=== PATIENT | female | born 1985 | race Caucasian/White ===

== ENCOUNTER 2017-06-02 00:44 | Emergency (ER) | payer MEDICAID, SELFPAY ==
[2017-06-02 00:46] VITALS: BP 139/83; PULSE 69; RESP 20; TEMP 36.7; O2SAT 100; BMI 41.4
[2017-06-02 01:02] LABS: Mucous, Urine 0 SEEN /hpf (<or=2+)
[2017-06-02 01:03] LABS: Color, Urine Yellow (Yellow); Glucose, Dipstick Normal (Normal); Ketone-Dipstick Negative (Negative); Leukocyte Esterase-Dipstick 500 /ul (Negative); Nitrite-Dipstick Negative (Negative); Occult Blood-Urine 150 /ul (Negative); Protein-Dipstick 30 mg/dl (Negative); Specific Gravity, Urine 1.015 (1.002-1.030); Urine Bilirubin Dipstick Negative (Negative); Urine Clarity Cloudy (Clear); Urine Urobilinogen Normal (Normal)
[2017-06-02 01:06] LABS: Internal QC Validated? YES +Cl - CLEAR BKGD; Pregnancy, Urine Negative Negative
[2017-06-02 01:08] LABS: White Blood Cells 25-50 SEEN /hpf (0-5)
[2017-06-02 01:09] LABS: Bacteria 2+ /hpf (None Seen); Red Blood Cells-Urine 5-10 SEEN /hpf (0-5); Squamous Epithelial Cells - UA 0-5 SEEN /hpf (5-10)
--- NOTE | 2017-06-02 01:23 | ED.DCSUM_ITS ---
- ER Visit Summary Date of Service: 06/02/17 Chief Complaint: Burning with urination History of Present Illness: The patient is a 31 F with UTI symptoms that started several weeks ago. She completed a course of doxycycline and Cipro. She has suprapubic pressure, dysuria, frequency. She was treated as well for bacterial vaginosis with Flagyl. Patient has no fever or systemic symptoms. Physical Examination: Afebrile and vitals unremarkable. Nontoxic. Back nontender. Abdomen normal. Test Results: test negative. Urinalysis shows elevated leukocyte esterase, elevated white cells, red cells, and bacteria. Cultures pending. Emergency Department Course and Treatment: I am not sure why the patient had a rebound infection. Possibly her previous infection was resistant to her antibiotics. I sent a culture. We will treat the patient with Keflex and Pyridium. Follow-up with her doctor. Treatment Plan: As above Disposition: Discharge Impression: UTI, cystitis This note was generated with [employer] dictation software. It may contain incorrect words, spelling, and punctuation that were not noted in review of the chart prior to signing ED Disposition - Plan for ED Patient: Chief Complaint: Complaint Referrals: Helen Bryant DO [Primary Care Provider] -
--- NOTE | 2017-06-02 01:23 | ED.DEP ---
ED Disposition - Plan for ED Patient: Chief Complaint: Complaint Instructions: ED UTI Cystitis Female Prescriptions: Cephalexin [Keflex] 500 mg PO Q6 #40 cap Phenazopyridine HCl [Pyridium] 200 mg PO TID #5 tab Referrals: Helen Bryant DO [Primary Care Provider] -
[2017-06-02] MEDS: Cephalexin 250 MG Capsule 500 MG PO (01:25)
[2017-06-02] MEDS: Phenazopyridine 95 MG Tablet 190 MG PO (01:28)
[2017-06-02 01:31] VITALS: BP 139/83; PULSE 69; RESP 20
== END 2017-06-02 01:31 | disposition home or self-care (01) ==
PROVIDERS: Emergency Provider Emergency Medicine
DX: N39.0 Urinary tract infection, site not specified (principal); Z87.440 Personal history of urinary (tract) infections; Z86.19 Personal history of other infectious and parasitic diseases; Z72.89 Other problems related to lifestyle; Z87.891 Personal history of nicotine dependence
CPT/HCPCS: 81001; 81025; 87077; 87086; 87088; 87186; 99283

== ENCOUNTER → 2017-06-29 19:27 | Outpatient (CLI) | payer MEDICAID, SELFPAY ==
[2017-06-29 21:41] LABS: Chlamydia Trachomatis by PCR Negative (Negative); Neisserai gonorrhoeae by PCR Negative (Negative); Probe Check PASS; Sample Adequacy Control PASS; Specimen Processing Control PASS
== END ==
PROVIDERS: Visit Provider Obstetrics & Gynecology
DX: Z11.3 Encounter for screening for infections with a predominantly sexual mode of transmission (principal)
CPT/HCPCS: 87491; 87591

== ENCOUNTER → 2017-07-20 11:47 | Outpatient (CLI) | payer MEDICAID, SELFPAY ==
[2017-07-20 13:49] LABS: Color, Urine Yellow (Yellow); Glucose, Dipstick Normal (Normal); Ketone-Dipstick Negative (Negative); Leukocyte Esterase-Dipstick 25 /ul (Negative); Nitrite-Dipstick Negative (Negative); Occult Blood-Urine 10 /ul (Negative); Protein-Dipstick 15 mg/dl (Negative); Urine Bilirubin Dipstick Negative (Negative); Urine Clarity Clear (Clear); Urine Urobilinogen Normal (Normal); Urine pH 6.5 (5.0 - 8.0)
[2017-07-20 14:12] LABS: Thyroid Stim Hormone (TSH) 5.16 uIU/mL (0.358-3.74)
[2017-07-20 14:13] LABS: Amphetamine Urine VISTA NEGATIVE (<1000 ng/mL); Barbiturate Urine VISTA NEGATIVE (< 200 ng/mL); Benzodiazepine Urine VISTA NEGATIVE (< 200 ng/mL); Cocaine Urine VISTA NEGATIVE (< 300 ng/mL); Ecstacy Urine VISTA NEGATIVE (< 500 ng/mL); Methadone Urine VISTA NEGATIVE (< 300 ng/mL); PCP Urine VISTA NEGATIVE (< 25 ng/mL); THC Urine VISTA NEGATIVE (< 50 ng/mL); Vista UDS pH Range 6
[2017-07-20 14:55] LABS: Absolute Lymphocyte Count 2.82 X10^3/ul (0.83-4.51); Absolute Neutrophil Count 4.1 X10^3/uL (2.0-7.7); Basophil# 0.02 X10^3/uL; Basophil% 0.3 % (0-1); Eosinophil# 0.12 X10^3/uL; Eosinophils% 1.6 % (0-5); Hematocrit 39.9 % (37-47); Hemoglobin 13.1 g/dl (12.0-15.0); Lymphocyte # 2.82 X10^3/ul (4.0); Mean Corp Hgb Conc 32.8 g/gl (32-36); Mean Corpuscular Volume 91.5 fL (81-99); Mean Platelet Vol. 10.3 fl (6.2-12.0); Monocyte# 0.56 X10^3/uL; Monocyte% 7.3 % (0-10); Neutrophil % 53.7 % (47-70); Platelet Count 271 K/mm3 (150-450); RBC Distribution Width CV 13.2 % (11.6-14.6); RBC Distribution Width SD 43.4 fl (35.1-43.9); Red Blood Count 4.36 M/mm3 (4.2-5.4); White Blood Count 7.6 K/mm3 (4.4-11.0)
[2017-07-20 14:56] LABS: POSITIVE COUNT NO; POSITIVE DIFFERENTIAL NO; POSITIVE MORPHOLOGY NO
[2017-07-20 15:58] LABS: COTININE Drug Screen Negative (<200 ng/mL)
[2017-07-20 16:25] LABS: Free T3 2.6 pg/mL (2.18-3.98); T4 Free Direct 0.81 ng/dL (0.76-1.46)
[2017-07-21 03:15] LABS: Prenatal RPR NONREACTIVE (NONREACTIVE)
[2017-07-21 09:16] LABS: HEPATITIS B SURFACE AG Negative (Negative); Hep C Antibodies <0.1 s/co ratio (0.0-0.9)
[2017-07-21 11:15] LABS: HIV - WCH Non-Reactive (Nonreactive); Rubella IgG 119.4 IU/mL
== END ==
PROVIDERS: Visit Provider Obstetrics & Gynecology
DX: O99.281 Endocrine, nutritional and metabolic diseases complicating pregnancy, first trimester (principal); R94.6 Abnormal results of thyroid function studies; Z3A.00 Weeks of gestation of pregnancy not specified
CPT/HCPCS: 36415; 80307; 81002; 84439; 84443; 84481; 85025; 86703; 86762; 86803; 87340

== ENCOUNTER 2017-08-03 21:59 | Emergency (ER) | payer MEDICAID, SELFPAY ==
[2017-08-03 22:01] VITALS: BP 138/86; PULSE 98; RESP 16; TEMP 37.2; O2SAT 100; BMI 40.7
[2017-08-03] MEDS: Clindamycin HCl 150 MG Capsule 300 MG PO (23:38)
--- NOTE | 2017-08-03 23:39 | ED.DCSUM_ITS ---
- ER Visit Summary Date of Service: 08/03/17 Chief Complaint: Sore on bottom History of Present Illness: The patient is a 31 F who is 11 weeks . She states that for the past week she has had discomfort on the right buttock near the midline. Patient states is progressively gotten worse in this evening she noted some bleeding. No fevers. No history of prior abscesses. Physical Examination: Afebrile vital signs are stable Gen: Well-nourished well-developed Head: Normocephalic atraumatic Eyes: Perrl EOMI ENT: TMs clear no rhinorrhea moist mucous membranes Neck: Supple no lymphadenopathy no JVD nontender CVS: Regular rate rhythm no murmurs normal S1-S2 Respiratory: No distress clear to auscultation bilaterally chest nontender Abdomen: Soft nontender nondistended normal bowel sounds no masses Back: Nontender Extremity: Nontender no edema Skin: There is an obvious pointing abscess with some fluctuance in the right buttock near the midline. There is some surrounding erythema. Neuro: alert orientated ?3 CN II-XII intact normal strength sensation reflexes gait cerebellar Psych: Normal affect normal mood Emergency Department Course and Treatment: Patient provided informed consent for the incision and drainage of the abscess. 1% lidocaine instilled into the skin of the pointing abscess. A cross incision was made with large amount of pus removed. The wound was probed for loculations and irrigated. It was packed with half-inch iodoform gauze. Patient will be placed on clindamycin because of the surrounding erythema. She will follow-up in 3 days for wound check and packing removal. Impression: 1. Right buttock abscess 2. Incision and drainage by physician This note was generated with [employer] dictation software. It may contain incorrect words, spelling, and punctuation that were not noted in review of the chart prior to signing ED Disposition - Plan for ED Patient: Disposition: Home or Assisted Living Chief Complaint: Wound Check Instructions: ED Abscess IandD Prescriptions: Clindamycin HCl [Cleocin] 300 mg PO Q6H #40 cap Referrals: Helen Bryant DO [Primary Care Provider] - (in 3 days for packing removal)
== END 2017-08-03 23:45 | disposition home or self-care (01) ==
PROVIDERS: Emergency Provider Emergency Medicine
DX: O99.711 Diseases of the skin and subcutaneous tissue complicating pregnancy, first trimester (principal); L02.31 Cutaneous abscess of buttock; Z79.899 Other long term (current) drug therapy; Z3A.11 11 weeks gestation of pregnancy
CPT/HCPCS: 10060; 99284

== ENCOUNTER → 2017-11-27 13:16 | Outpatient (CLI) | payer MEDICAID, SELFPAY ==
[2017-11-27 13:56] LABS: Glucose Challenge Gest 1H 50g 224 mg/dL (70-140)
[2017-11-27 14:09] LABS: Hematocrit 35.6 % (37-47); Hemoglobin 11.7 g/dl (12.0-15.0); Mean Corp Hgb Conc 32.9 g/gl (32-36); Mean Corpuscular Hgb 29.8 pg (27.0-32.0); Mean Corpuscular Volume 90.8 fL (81-99); Mean Platelet Vol. 10.1 fl (6.2-12.0); Platelet Count 244 K/mm3 (150-450); RBC Distribution Width CV 13.2 % (11.6-14.6); RBC Distribution Width SD 43.1 fl (35.1-43.9); Red Blood Count 3.92 M/mm3 (4.2-5.4); White Blood Count 7.2 K/mm3 (4.4-11.0)
[2017-11-27 14:11] LABS: Scan Indicated on CBC? Y/N NO
== END ==
PROVIDERS: Visit Provider Obstetrics & Gynecology
DX: Z34.82 Encounter for supervision of other normal pregnancy, second trimester (principal)
CPT/HCPCS: 82950; 85027

== ENCOUNTER 2017-12-18 09:30 | Outpatient (RCR) | payer MEDICAID, SELFPAY | END 2017-12-22 23:59 | LOC: DC 09:30 | PROVIDERS: Visit Provider Obstetrics & Gynecology | DX: O24.419 Gestational diabetes mellitus in pregnancy, unspecified control (principal); Z71.3 Dietary counseling and surveillance | CPT/HCPCS: 97802; G0108 ==

== ENCOUNTER 2018-01-09 15:00 | Outpatient (RCR) | payer MEDICAID, SELFPAY | END 2018-01-21 23:59 | LOC: DC 15:00 | PROVIDERS: Visit Provider Obstetrics & Gynecology | DX: O24.419 Gestational diabetes mellitus in pregnancy, unspecified control (principal); Z71.3 Dietary counseling and surveillance ==

== ENCOUNTER → 2018-01-22 14:13 | Outpatient (CLI) | payer MEDICAID, SELFPAY ==
[2018-01-22 17:58] LABS: Group B Strep DNA By PCR Negative (Negative); Internal Control PASS; Probe Check PASS; Specimen Processing Control PASS
== END ==
PROVIDERS: Visit Provider Obstetrics & Gynecology
DX: Z36.85 Encounter for antenatal screening for Streptococcus B (principal)
CPT/HCPCS: 87081; 87653

== ENCOUNTER 2018-02-14 04:50 | Inpatient (IN) | payer MEDICAID, SELFPAY ==
[2018-02-14] VITALS (21 sets, daily range): BP systolic 109–160; BP diastolic 58–82; PULSE 65–94; RESP 16–24; TEMP 36.4–37.3; O2SAT 97–100; BMI 42.5
--- NOTE | 2018-02-14 | FALS_PTH ---
PATIENT: CAROLINA REN LOC: [facility] U#:[id number] AGE/SX: 32/F ROOM: WP003 RE02/14/[address]: Dr. Armond Pineda MD : 1985 BED: 1 DIS: 02/16/2018 SPEC #: [id number] RECD: 02/14/18 06:54 STATUS: MARTHA MICHELE #: [id number] MELBA: 02/14/18 00:[address]: Armond Pineda DEPT: SURGICAL PATHOLOGY RECD BY: Stan Marcano Tissues: Fallopian tube Procedures: Surgery Specimen Level II HEADER OPERATION: Bilateral tubal occlusion with Filshie clips PRE-OP DIAGNOSIS: Desires sterilization TISSUE SUBMITTED: Right side tube MICROSCOPIC DIAGNOSIS Right side tube: Consistent with paratubal cyst. SUZIE:vianey 02/15/18 MICROSCOPIC DESCRIPTION Slides are reviewed. GROSS DESCRIPTION Received in fixative is one container labeled with the patient's name and designated right side tube. The specimen consists of a dudley-pink cyst measuring 4 x 4 x 2 cm and weighing 18 gm. The cyst surface is smooth. The cyst is filled with clear fluid. The inner cyst wall is also smooth without any papillation. Equipment Driver sections are submitted in two cassettes. / SJ:vianey 02/14/18 TC:5 CPT: 22547
[2018-02-14] MEDS: Lactated Ringers 1,000 ML 999 ML IV (05:35)
[2018-02-14 05:51] LABS: Bedside Glucose 112 mg/dL (70-110)
[2018-02-14 05:54] LABS: Hematocrit 36.6 % (37-47); Hemoglobin 11.9 g/dl (12.0-15.0); Mean Corp Hgb Conc 32.5 g/gl (32-36); Mean Corpuscular Hgb 28.1 pg (27.0-32.0); Mean Corpuscular Volume 86.5 fL (81-99); Mean Platelet Vol. 9.9 fl (6.2-12.0); Platelet Count 256 K/mm3 (150-450); RBC Distribution Width CV 13.4 % (11.6-14.6); RBC Distribution Width SD 41.1 fl (35.1-43.9); Red Blood Count 4.23 M/mm3 (4.2-5.4); White Blood Count 7.7 K/mm3 (4.4-11.0)
[2018-02-14 05:57] LABS: Prothrombin Time (Protime)PT. 13.1 SECONDS (11.7-14.9)
[2018-02-14 05:58] LABS: Partial Thromboplast Time 27.3 Seconds (24.1-36.2)
[2018-02-14 06:02] LABS: Scan Indicated on CBC? Y/N NO
[2018-02-14] MEDS: Lactated Ringers 1,000 ML 150 ML IV (06:34)
[2018-02-14] MEDS: Sodium Citrate/Citric Acid 30 ML UDC PO (07:12)
[2018-02-14] MEDS: Oxytocin 30 units/NS 500 ml 30 UNITS/500 ML IV.SOLN 167 UNITS IV (07:49)
[2018-02-14] MEDS: Ketorolac 30 MG/ML Syringe IV ×3 (08:06→19:48)
--- NOTE | 2018-02-14 08:50 | PCM.OP.BLANK ---
Operative Report Date of Procedure: 02/14/18 Surgeon: Armond Pineda MD, FACOG Boat Deckhand: WILLIAM Schultz Anesthesia: Marily Velez CRNA Anesthesia: Spinal with Duramorph Pre-op Diagnosis: - -Prior Section, Desires Permanent Sterilization Post-Op Diagnosis: - -Prior Section, Desires Permanent Sterilization Procedure: Repeat Low Transverse Cervical Caesarean Section And Bilateral Tubal Occlusion with Filshie Clips Findings: Viable male with Apgars of 9/9 in occiput anterior presentation with clear amniotic fluid and normal three-vessel placenta. Indication: This is a 32-year-old who presents for her second at 39+ weeks gestation. care has otherwise been uneventful except for gestational diabetes controlled with low-dose glyburide and a placental bump noted on very early ultrasound which subsequently resolved. The patient has been counseled regarding the risk and indications of this procedure including the possibility of bleeding infection and injury to surrounding structures such as bowel bladder. All questions were answered. Procedure: Patient was taken to the operating room where after spinal anesthesia was placed, the patient was prepped and draped in usual sterile fashion and a Grullon catheter was placed. The abdomen was entered through the patient's prior Pfannenstiel incision and peritoneum was entered bluntly. After developing a bladder flap on the lower uterine segment a low transverse incision was made on the uterus and head was easily delivered onto the operative field the nose mouth and oropharynx were bulb suctioned. Subsequently a viable male was born with Apgars of 9/9. The infant was noted to cry move all extremities vigorously on the operative field. The umbilical cord was doubly clamped and ligated and infant handed to the nursery personnel who were present for the delivery. Placenta was delivered and noted to be 3 vessels and normal. Uterus was exteriorized and remaining placental tissue was removed. The uterus was then closed in 2 layers first with running locked 0 Vicryl suture followed by a second imbricating layer with 0 Vicryl suture. 0 Vicryl suture was then used in a horizontal mattress interrupted fashion to affect final hemostasis of the uterine incision line. Normal fallopian tubes and ovaries were visualized and Filshie clips were placed approximately 1-2 cm from the uterine fundus on each tube. The uterus was returned to the pelvis. Hemostasis was noted and rectus abdominis muscles were reapproximated in the midline with interrupted Number 0 Vicryl suture in a horizontal mattress fashion. Fascia was closed with running Number 1 PDS Strata fix suture. Subcutaneous tissue was irrigated with copious amounts of saline solution and then closed with running 3-0 Vicryl suture. Skin was closed with 4-0 monocryl suture in a running subcuticular fashion. Steri strips, telfa, and tape were placed across the incision. The patient tolerated the procedure well and was taken to the recovery room in satisfactory condition. Sponge, needle, and instrument counts were all reportedly correct. EBL was less than 500 cc. Ancef 3 gms IV was given prior to the procedure. Spicemen to Pathology: None Complications: None
--- NOTE | 2018-02-14 08:54 | OP.PCM_ITS ---
Operative Report Date of Procedure: 02/14/18 Surgeon: Armond Pineda MD, FACOG Co Founder & Ceo: WILLIAM Schultz Anesthesia: Marily Velez CRNA Anesthesia: Spinal with Duramorph Pre-op Diagnosis: - -Prior Section, Desires Permanent Sterilization Post-Op Diagnosis: - -Prior Section, Desires Permanent Sterilization Procedure: Repeat Low Transverse Cervical Caesarean Section And Bilateral Tubal Occlusion with Filshie Clips Findings: Viable male with Apgars of 9/9 in occiput anterior presentation with clear amniotic fluid and normal three-vessel placenta. Indication: This is a 32-year-old who presents for her second at 39+ weeks gestation. care has otherwise been uneventful except for gestat ional diabetes controlled with low-dose glyburide and a placental bump noted on very early ultrasound which subsequently resolved. The patient has been counseled regarding the risk and indications of this procedure including the possibility of bleeding infection and injury to surrounding structures such as bowel bladder. All questions were answered. Procedure: Patient was taken to the operating room where after spinal anesthesia was placed, the patient was prepped and draped in usual sterile fashion and a Grullon catheter was placed. The abdomen was entered through the patient's prior Pfannenstiel incision and peritoneum was entered bluntly. After developing a bladder flap on the lower uterine segment a low transverse incision was made on the uterus and head was easily delivered onto the operative field the nose mouth and oropharynx were bulb suctioned. Subsequently a viable male infant was born with Apgars of 9/9. The infant was noted to cry move all extremities vigorously on the operative field. The umbilical cord was doubly clamped and ligated and handed to the nursery personnel who were present for the delivery. Placenta was delivered and noted to be 3 vessels and normal. Uterus was exteriorized and remaining placental tissue was removed. The uterus was then closed in 2 layers first with running locked 0 Vicryl suture followed by a second imbricating layer with 0 Vicryl suture. 0 Vicryl suture was then used in a horizontal mattress interrupted fashion to affect final hemostasis of the uterine incision line. Normal fallopian tubes and ovaries were visualized and Filshie clips were placed approximately 1-2 cm from the uterine fundus on each tube. The uterus was returned to the pelvis. Hemostasis was noted and rectus abdominis muscles were reapproximated in the midline with interrupted Number 0 Vicryl suture in a horizontal mattress fashion. Fascia was closed with running Number 1 PDS Strata fix suture. Subcutaneous tissue was irrigated with copious amounts of saline solution and then closed with running 3-0 Vicryl suture. Skin was closed with 4-0 monocryl suture in a running subcuticular fashion. Steri strips, telfa, and tape were placed across the incision. The patient tolerated the procedure well and was taken to the recovery room in satisfactory condition. Sponge, needle, and instrument counts were all reportedly correct. EBL was less than 500 cc. Ancef 3 gms IV was given prior to the procedure. Spicemen to Pathology: None Complications: None
--- NOTE | 2018-02-14 08:56 | DCINST_ITS ---
Discharge Diet: No Restrictions Discharge Activity: May not drive while taking narcotic pain medications., May Shower, May Take a Tub Bath May resume sexual activity in: 4-6 weeks Lifting Restrictions: 20 pounds Additional Activity Instructions:: Nothing in the vagina for 4-6 weeks. You may return to work/school in 6 weeks. Call your doctor if your incision/area has: Continuous Slow Oozing, Sudden Increased Bleeding, Increased Pain/ Swelling, Increased Redness, Foul Smelling Discharge Call your doctor if you observe: Fever of 101 or Higher, Inability to urinate, Inability to have a bowel movement, Using more than one pad per hour Additional Instructions: If you experience any of the following, contact your healthcare provider. * Bleeding that soaks a pad every hour for 2 hours * Unrelieved incision or abdominal pain * Swelling, redness, discharge or bleeding from your incision or episiotomy site * Your incision begins to separate * Problems urinating (including inability to urinate or burning while urinating). * Visual changes * Severe headache * Flu-like symptoms * Pain or redness in one of both of your breasts * Pain, warmth, tenderness or swelling in your legs, especially the calf area * Frequent nausea and vomiting * Symptoms of depression or anxiety If you experience any of the following, call 911 or go to the nearest Emergency Room. * Chest pain * Problems breathing * Seizure activity * Partial or complete paralysis of a body part, slurred speech, weakness or drooping of the face, or a sudden inability to walk or hold your balance Allergies/Adverse Reactions: Allergies No Known Allergies Allergy (Verified 02/14/18 05:33) Medications to take at Discharge Levothyroxine [Synthroid] 25 mcg PO DAILY 06/02/17 Vit No.130/Iron/FA [ Vitamins] 1 each PO DAILY 08/03/17 Docusate Sodium [Colace] 100 mg PO BID PRN PRN #60 cap 02/14/18 Glyburide 1.25 mg PO 02/14/18 Oxycodone [Oxyir] 5 mg PO Q6H PRN PRN 7 Days #20 tab 02/14/18 Follow-Up: Call to make an appointment with your doctor for an incision check in 1-2 weeks. You will also need a 6 week post- follow up appointment. Test results from this visit will be discussed in further detail at your follow- up appointment, if applicable. Please Follow Up With: Armond Pineda MD - [phone] When: Call to make an appointment for an incision check in 2 weeks.
[2018-02-14] MEDS: Lactated Ringers 1,000 ML 100 ML IV ×2 (09:47→17:51)
[2018-02-14 10:46] LABS: Bedside Glucose 100 mg/dL (70-110)
[2018-02-14] MEDS: Nalbuphine 10 MG/ML Ampul 5 MG IV ×2 (10:55→22:46)
[2018-02-14 11:43] LABS: Pathology Specimen OB SEE PATHOLOGY REPORT
[2018-02-14] MEDS: Cefazolin 1 GM/50 ML BAG IV ×2 (15:30→22:36)
[2018-02-14] MEDS: DiphenhydrAMINE 25 MG Capsule PO (17:51)
--- NOTE | 2018-02-14 21:58 | NURSING ---
Moving about in room, sitting up on chair
[2018-02-15] MEDS: Ketorolac 30 MG/ML Syringe IV ×4 (01:35→19:56)
[2018-02-15 01:45] VITALS: PULSE 100; RESP 18; O2SAT 100
[2018-02-15] MEDS: Nalbuphine 10 MG/ML Ampul 5 MG IV (02:55)
[2018-02-15 02:59] VITALS: PULSE 99; RESP 18; TEMP 37; O2SAT 100
[2018-02-15 05:00] VITALS: PULSE 98; RESP 16; O2SAT 98
[2018-02-15 05:06] LABS: Bedside Glucose 82 mg/dL (70-110)
[2018-02-15 05:19] LABS: Hematocrit 30.7 % (37-47); Hemoglobin 9.7 g/dl (12.0-15.0); Mean Corp Hgb Conc 31.6 g/gl (32-36); Mean Corpuscular Hgb 27.9 pg (27.0-32.0); Mean Corpuscular Volume 88.2 fL (81-99); Mean Platelet Vol. 9.8 fl (6.2-12.0); Platelet Count 208 K/mm3 (150-450); RBC Distribution Width CV 13.4 % (11.6-14.6); Red Blood Count 3.48 M/mm3 (4.2-5.4); White Blood Count 7.9 K/mm3 (4.4-11.0)
[2018-02-15 05:30] LABS: Scan Indicated on CBC? Y/N NO
[2018-02-15] MEDS: Levothyroxine 25 MCG TABLET PO (06:05)
[2018-02-15 07:00] VITALS: BP 133/76; PULSE 86; RESP 16; TEMP 36.7; O2SAT 100
[2018-02-15] MEDS: 0.9% Saline Lock 10 ML Syringe IV ×4 (07:41→19:58)
[2018-02-15] MEDS: Senna/Docusate Sodium 1 Tablet PO (07:42)
[2018-02-15] MEDS: oxyCODONE 5 MG Tablet PO ×3 (07:45→21:21)
--- NOTE | 2018-02-15 09:16 | PCM.PN.OB ---
Subjective: Patient doing well. Itching possibly from Duramorph and spinal or antibiotic used after surgery. Relieved with Benadryl. Positive flatus. Pain well controlled. - Physical Exam Vital Signs AF, VSS Temp Pulse Resp BP Pulse Ox 98.6 F 98 16 118/74 98 02/15/18 02:59 02/15/18 05:00 02/15/18 05:00 02/14/18 23:45 02/15/18 05:00 Oxygen Delivery Method Room Air Weight: 271 lb 6.224 oz Body Mass Index (BMI) 42.5 Intake and Output for Last 24 Hours 02/13/18 02/14/18 02/15/18 23:59 23:59 23:59 Intake Total 3502 / 3502 683 / 683 Output Total 1100 / 1100 900 / 900 Balance 2402 / 2402 -217 / -217 Laboratory Tests Past 24 Hrs 02/15/18 05:00 WBC 7.9 RBC 3.48 L Hgb 9.7 L Hct 30.7 L MCV 88.2 MCH 27.9 MCHC 31.6 L RDW 13.4 RDW Differential 41.0 Plt Count 208 MPV 9.8 POC Glucose 02/15/18 02/14/18 05:00 10:35 POC Glucose 82 100 Wound is clean, dry, intact. Good urine output. Hemoglobin okay. Medical Necessity - Tobacco Use Smoking Status: Former smoker Assessment/Plan Doing well postoperative day #1 status post repeat and tubal. Anticipate that itching should resolve later today. Continuing present care.
[2018-02-15] MEDS: DiphenhydrAMINE 25 MG Capsule 50 MG PO ×2 (09:49→23:39)
[2018-02-15 14:00] VITALS: BP 125/66; PULSE 102; RESP 16; TEMP 36.9; O2SAT 99
[2018-02-15 20:00] VITALS: BP 129/80; PULSE 98; RESP 16; TEMP 38
[2018-02-16] MEDS: 0.9% Saline Lock 10 ML Syringe IV (01:31)
[2018-02-16] MEDS: Ketorolac 30 MG/ML Syringe IV (01:31)
[2018-02-16 01:40] VITALS: BP 122/76; PULSE 73; RESP 16; TEMP 36.8
[2018-02-16] MEDS: Levothyroxine 25 MCG TABLET PO (05:58)
[2018-02-16] MEDS: oxyCODONE 5 MG Tablet PO ×2 (07:45→13:53)
[2018-02-16 07:52] VITALS: BP 128/81; PULSE 72; RESP 16; TEMP 37.2
--- NOTE | 2018-02-16 09:06 | PCM.PN.OB ---
Subjective: Patient without complaints. Tolerating diet well. Positive flatus. Wants to go home later today. - Physical Exam Vital Signs Temp Pulse Resp BP Pulse Ox 99 F 72 16 128/81 H 99 02/16/18 07:52 02/16/18 07:52 02/16/18 07:52 02/16/18 07:52 02/15/18 14:00 Oxygen Delivery Method Room Air Weight: 271 lb 6.224 oz Body Mass Index (BMI) 42.5 Intake and Output for Last 24 Hours 02/14/18 02/15/18 02/16/18 23:59 23:59 23:59 Intake Total 3502 / 3502 683 / 683 Output Total 1100 / 1100 1350 / 1350 Balance 2402 / 2402 -667 / -667 Wound is clean, dry, intact. Good urine output. Medical Necessity - Tobacco Use Smoking Status: Former smoker Assessment/Plan Doing well postoperative day #2 status post repeat . Will release to home with routine instructions.
[2018-02-16 14:00] VITALS: BP 138/80; PULSE 87; RESP 16; TEMP 37.6
[2018-02-16] MEDS: Ibuprofen 600 MG Tablet PO (17:19)
== END 2018-02-16 17:35 | disposition home or self-care (01) | DRG 540 ==
PROVIDERS: Admitting Provider Obstetrics & Gynecology; Referring Provider Obstetrics & Gynecology; Visit Provider Obstetrics & Gynecology
PROC: 10D00Z1 Extraction of Products of Conception, Low, Open Approach (ICD-10-PCS; CPT 59514; principal; 2018-02-14 07:15)
DX: O34.211 Maternal care for low transverse scar from previous cesarean delivery (principal); Z30.2 Encounter for sterilization; O24.425 Gestational diabetes mellitus in childbirth, controlled by oral hypoglycemic drugs; Z79.899 Other long term (current) drug therapy; Z87.891 Personal history of nicotine dependence; Z3A.39 39 weeks gestation of pregnancy; Z37.0 Single live birth
CPT/HCPCS: 82962; 85027; 85610; 85730; 86850; 86900; 88302; 99218; J7120; A4216; G0378; J2405

== ENCOUNTER → 2018-03-22 13:10 | Outpatient (CLI) | payer MEDICAID, SELFPAY ==
[2018-03-22 13:10] VITALS: BMI 41.4
--- OUTSIDE RECORDS SUMMARY | 2018-05-17 17:23 | XMS RPT_ITS ---
:1985 Author Organization OHIP Support Name Relationship Address Phone GRELE Unavailable [address] + [place] [address] ROGER, ANGELA Unavailable [address] + [place] [address] GRELE Unavailable [address] + [place] [address] ROGER, ANGELA Unavailable [address] + [place] [address] GRELE Unavailable [address] + [place] [address] ROGER, ANGELA Unavailable [address] + [place] [address] GRELE Unavailable [address] + [place] [address] ROGER, ANGELA Unavailable [address] + [place] [address] GRELE Unavailable [address] + [place] [address] ROGER, ANGELA Unavailable [address] + [place] [address] GRELE Unavailable [address] + [place] [address] ROGER, ANGELA Unavailable [address] + [place] [address] GRELE Unavailable [address] + [place] [address] ROGER, ANGELA Unavailable [address] + [place] [address] GRELE Unavailable [address] + [place] [address] ROGER, ANGELA Unavailable [address] + [place] [address] GRELE Unavailable [address] + [place] [address] ROGER, ANGELA Unavailable [address] + [place] [address] GRELE Unavailable [address] + [place] [address] ROGER, ANGELA Unavailable [address] + [place] [address] GRELE Unavailable [address] + [place] [address] ROGER, ANGELA Unavailable [address] + [place] [address] GRELE Unavailable [address] + [place] [address] ROGER, ANGELA Unavailable [address] + [place] [address] Care Team Providers Name Role Phone Armond Pineda Attending Unavailable Ambrocio June Attending Unavailable Helen Bryant Primary Care Unavailable Armond Pineda Attending Unavailable Armond Pineda Referring Unavailable Manny, Helen Primary Care Unavailable Armond Pineda Attending Unavailable Manny, Helen Primary Care Unavailable Manyn, Helen Primary Care Unavailable Ambrocio Zavaleta Attending Unavailable Kasey Watkins Attending Unavailable Anneliese Tolbert Attending Unavailable Manny, Helen Primary Care Unavailable Armond Pineda Admitting Unavailable Armond Pineda Attending Unavailable Armond Pineda Referring Unavailable Manny, Helen Primary Care Unavailable Anneliese Tolbert Attending Unavailable Manny, Helen Primary Care Unavailable Anneliese Tolbert Attending Unavailable Manny, Helen Primary Care Unavailable Armond Pineda Attending Unavailable Armond Pineda Attending Unavailable PROBLEMS PROBLEMS DATE TYPE CONDITION / CODE ATTENDING STATUS SOURCE 02/16/2018 Unknown G89.18 - Other acute Armond Pineda Active [place] postprocedural pain Community / G89.18(ICD-10) Hospital Repository 01/22/2018 Unknown O24.419 - Anneliese Tolbert Active [place] Gestational diabetes Community mellitus in Hospital , Repository unspecified control / O24.419(ICD-10) 11/27/2017 Unknown Z34.82 - Encounter RolandKelsey for supervision of [facility] normal Hospital , second Repository trimester / Z34.82(ICD-10) 06/30/2017 Unknown Z11.3 - Encounter Armond Pineda Active [place] for screening for Community infections with a Hospital predominantly sexual Repository mode of transmission / Z11.3(ICD-10) 05/10/2017 Unknown R30.0 - Dysuria / Edwin Armond Active [place] R30.0(ICD-10) [facility] Repository PROCEDURES PROCEDURES No Procedure Records FoundRESULTS RESULTS Observed: 03/22/2018 Status: F Source: [place] CULTURE, URINE 12:15 PM [facility] REPOSITORY Urine Culture Culture exhibits no growth. Performed By: #### M100.0650 #### [facility] Laboratory [address] [place], [place], [address] BEDSIDE GLUCOSE Collected: 02/15/2018 Status: F Source: [place] 5:00 AM [facility] REPOSITORY TYPE CODE TESTS RESULT OUT OF RANGE REFERENCE UNITS LAB L501.080 70-110 mg/dL Normal BEDSIDE GLU 82 Result Comment: MANAGEMENT OF PATIENT CARE PER NURSING PROTOCOL Performed By: #### L501.080 #### [facility] Laboratory Point of Care [address] [place] [address] [place], [place] [address] CBC-COMPLETE BLOOD CNT Collected: 02/15/2018 Status: F Source: [place] NO DIFF 5:00 AM [facility] REPOSITORY Order Comment: Comments: Day #1 Reason for Laboratory Test TYPE CODE TESTS RESULT OUT OF RANGE REFERENCE UNITS LAB L100.1000 4.4-11.0 K/mm3 Normal WBC 7.9 LAB L100.1200 4.2-5.4 M/mm3 Low RBC 3.48 LAB L100.1300 12.0-15.0 g/dl Low HGB 9.7 LAB L100.1400 37-47 % Low HCT 30.7 LAB L100.1500 81-99 fL Normal MCV 88.2 LAB L100.1600 27.0-32.0 pg Normal MCH 27.9 LAB L100.1700 32-36 g/gl Low MCHC 31.6 LAB L100.1810 11.6-14.6 % Normal RDW CV 13.4 LAB L100.1820 35.1-43.9 fl Normal RDW SD 41.0 LAB L100.1900 150-450 K/mm3 Normal PLT 208 LAB L100.2000 6.2-12.0 fl Normal MPV 9.8 Performed By: #### L100.0500 #### [facility] [address] [place], [address] BEDSIDE GLUCOSE Collected: 02/14/2018 Status: F Source: [place] 10:35 AM [facility] REPOSITORY TYPE CODE TESTS RESULT OUT OF RANGE REFERENCE UNITS LAB L501.080 70-110 mg/dL Normal BEDSIDE GLU 100 Result Comment: MANAGEMENT OF PATIENT CARE PER NURSING PROTOCOL Performed By: #### L501.080 #### [facility] Laboratory Point of Care [address] [place] [address] DISCHARGE INSTRUCTION Observed: 02/14/2018 Status: F Source: [place] 8:56 AM [facility] REPOSITORY [facility] Medical Records Department [address] [place] [address] Instructions for Home/Discharge Instructions 02/14/18 0854 MR#: [id number] Acct: [id number] Name: JENNYFER REN Rep #: [id number] : 1985 32 From: Armond Pineda MD PCP: Status: ADM IN Discharge Diet: No Restrictions Discharge Activity: May not drive while taking narcotic pain medications., May Shower, May Take a Tub Bath May resume sexual activity in: 4-6 weeks Lifting Restrictions: 20 pounds Additional Activity Instructions:: Nothing in the vagina for 4-6 weeks. You may return to work/school in 6 weeks. Call your doctor if your incision/area has: Continuous Slow Oozing, Sudden Increased Bleeding, Increased Pain/ Swelling, Increased Redness, Foul Smelling Discharge Call your doctor if you observe: Fever of 101 or Higher, Inability to urinate, Inability to have a bowel movement, Using more than one pad per hour Additional Instructions: If you experience any of the following, contact your healthcare provider. * Bleeding that soaks a pad every hour for 2 hours * Unrelieved incision or abdominal pain * Swelling, redness, discharge or bleeding from your incision or episiotomy site * Your incision begins to separate * Problems urinating (including inability to urinate or burning while urinating). * Visual changes * Severe headache * Flu-like symptoms * Pain or redness in one of both of your breasts * Pain, warmth, tenderness or swelling in your legs, especially the calf area * Frequent nausea and vomiting * Symptoms of depression or anxiety If you experience any of the following, call 911 or go to the nearest Emergency Room. * Chest pain * Problems breathing * Seizure activity * Partial or complete paralysis of a body part, slurred speech, weakness or drooping of the face, or a sudden inability to walk or hold your balance Allergies/Adverse Reactions: Allergies No Known Allergies Allergy (Verified 02/14/18 05:33) Medications to take at Discharge Levothyroxine [Synthroid] 25 mcg PO DAILY 06/02/17 Vit No.130/Iron/FA [ Vitamins] 1 each PO DAILY 08/03/17 Docusate Sodium [Colace] 100 mg PO BID PRN PRN #60 cap 02/14/18 Glyburide 1.25 mg PO 02/14/18 Oxycodone [Oxyir] 5 mg PO Q6H PRN PRN 7 Days #20 tab 02/14/18 Follow-Up: Call to make an appointment with your doctor for an incision check in 1-2 weeks. You will also need a 6 week post- follow up appointment. Test results from this visit will be discussed in further detail at your follow-up appointment, if applicable. Please Follow Up With: Armond Pineda MD - [phone] When: Call to make an appointment for an incision check in 2 weeks. 02/14/18 0856 <Electronically signed by Armond Pineda MD> Date Armond Pineda MD CC: OPERATIVE REPORT Observed: 02/14/2018 Status: F Source: [place] 8:54 AM [facility] REPOSITORY [facility] Medical Records Department [address] [place] [address] Operative Report 02/14/18 0850 MR#: [id number] Acct: [id number] Name: JENNYFER REN Rep #: [id number] : 1985 32 From: Armond Pineda MD PCP: Status: ADM IN Y Location: WS221-8 Operative Report Date of Procedure: 02/14/18 Surgeon: Armond Pineda MD, FACOG Home Health Caregiver: WILLIAM Schultz Anesthesia: Marily Velez CRNA Anesthesia: Spinal with Duramorph Pre-op Diagnosis: - -Prior Section, Desires Permanent Sterilization Post-Op Diagnosis: - -Prior Section, Desires Permanent Sterilization Procedure: Repeat Low Transverse Cervical Caesarean Section And Bilateral Tubal Occlusion with Filshie Clips Findings: Viable male infant with Apgars of 9/9 in occiput anterior presentation with clear amniotic fluid and normal three-vessel placenta. Indication: This is a 32-year-old who presents for her second at 39+ weeks gestation. care has otherwise been uneventful except for gestational diabetes controlled with low-dose glyburide and a placental bump noted on very early ultrasound which subsequently resolved. The patient has been counseled regarding the risk and indications of this procedure including the possibility of bleeding infection and injury to surrounding structures such as bowel bladder. All questions were answered. Procedure: Patient was taken to the operating room where after spinal anesthesia was placed, the patient was prepped and draped in usual sterile fashion and a Grullon catheter was placed. The abdomen was entered through the patient's prior Pfannenstiel incision and peritoneum was entered bluntly. After developing a bladder flap on the lower uterine segment a low transverse incision was made on the uterus and head was easily delivered onto the operative field the nose mouth and oropharynx were bulb suctioned. Subsequently a viable male was born with Apgars of 9/9. The was noted to cry move all extremities vigorously on the operative field. The umbilical cord was doubly clamped and ligated and infant handed to the nursery personnel who were present for the delivery. Placenta was delivered and noted to be 3 vessels and normal. Uterus was exteriorized and remaining placental tissue was removed. The uterus was then closed in 2 layers first with running locked 0 Vicryl suture followed by a second imbricating layer with 0 Vicryl suture. 0 Vicryl suture was then used in a horizontal mattress interrupted fashion to affect final hemostasis of the uterine incision line. Normal fallopian tubes and ovaries were visualized and Filshie clips were placed approximately 1-2 cm from the uterine fundus on each tube. The uterus was returned to the pelvis. Hemostasis was noted and rectus abdominis muscles were reapproximated in the midline with interrupted Number 0 Vicryl suture in a horizontal mattress fashion. Fascia was closed with running Number 1 PDS Strata fix suture. Subcutaneous tissue was irrigated with copious amounts of saline solution and then closed with running 3-0 Vicryl suture. Skin was closed with 4-0 monocryl suture in a running subcuticular fashion. Steri strips, telfa, and tape were placed across the incision. The patient tolerated the procedure well and was taken to the recovery room in satisfactory condition. Sponge, needle, and instrument counts were all reportedly correct. EBL was less than 500 cc. Ancef 3 gms IV was given prior to the procedure. Spicemen to Pathology: None Complications: None 02/14/18 0854 <Electronically signed by Armond Pineda MD> Date Armond Pineda MD CC: Armond Pineda MD Signed PATHOLOGY SPECIMEN OB Collected: 02/14/2018 Status: F Source: [place] 7:30 AM [facility] REPOSITORY Order Comment: Send Specimen For (Specify): Studies @ [facility] Lab:Routine Time of Procedure: 075 Date of Procedure: 02/14/18 Reason specimen being sent to pathology (Hx/complications): right ovarian cyst Type of specimen: Other (Not Defined) Type of procedure performed: Other TYPE CODE TESTS RESULT OUT OF RANGE REFERENCE UNITS LAB L350.1800 SEE Normal PATH. PATHOLOGY Spec. OB REPORT Result Comment: Specimen submitted to Anatomical Pathology Department for testing. Performed By: #### L350.1800 #### [facility] [place], [address] BEDSIDE GLUCOSE Collected: 02/14/2018 Status: F Source: [place] 5:41 AM [facility] REPOSITORY TYPE CODE TESTS RESULT OUT OF REFERENCE UNITS RANGE LAB L501.080 70-110 mg/dL High BEDSIDE GLU 112 Result Comment: MANAGEMENT OF PATIENT CARE PER NURSING PROTOCOL Performed By: #### L501.080 #### [facility] Laboratory Point of Care [address] [place] [address] CBC-COMPLETE BLOOD CNT Collected: 02/14/2018 Status: F Source: [place] NO DIFF 5:35 AM [facility] REPOSITORY TYPE CODE TESTS RESULT OUT OF RANGE REFERENCE UNITS LAB L100.1000 4.4-11.0 K/mm3 Normal WBC 7.7 LAB L100.1200 4.2-5.4 M/mm3 Normal RBC 4.23 LAB L100.1300 12.0-15.0 g/dl Low HGB 11.9 LAB L100.1400 37-47 % Low HCT 36.6 LAB L100.1500 81-99 fL Normal MCV 86.5 LAB L100.1600 27.0-32.0 pg Normal MCH 28.1 LAB L100.1700 32-36 g/gl Normal MCHC 32.5 LAB L100.1810 11.6-14.6 % Normal RDW CV 13.4 LAB L100.1820 35.1-43.9 fl Normal RDW SD 41.1 LAB L100.1900 150-450 K/mm3 Normal PLT 256 LAB L100.2000 6.2-12.0 fl Normal MPV 9.9 Performed By: #### L100.0500, L300.3900, L300.4310 #### [facility] [address] [facility] [facility] [address] PROTHROMBIN TIME W/INR Collected: 02/14/2018 Status: F Source: [place] 5:35 AM [facility] REPOSITORY TYPE CODE TESTS RESULT OUT OF RANGE REFERENCE UNITS LAB L300.4150 11.7-14.9 SECONDS Normal PROTIME 13.1 LAB L300.4200 Normal INR 1.0 Performed By: #### L100.0500, L300.3900, L300.4310 #### [facility] [address] [place], [address] PARTIAL THROMBOPLAST Collected: 02/14/2018 Status: F Source: [place] TIME 5:35 AM [facility] REPOSITORY TYPE CODE TESTS RESULT OUT OF RANGE REFERENCE UNITS LAB L300.4310 24.1-36.2 Seconds Normal PTT 27.3 Performed By: #### L100.0500, L300.3900, L300.4310 #### [facility] [address] [place], [address] TYPE AND SCREEN Collected: 02/14/2018 Status: F Source: [place] 5:35 AM [facility] REPOSITORY Order Comment: Reason for Type AND Screen/Red Cells: ROUTINE TYPE CODE TESTS RESULT OUT OF RANGE REFERENCE UNITS LAB B10.0800 O Normal BLOOD TYPE GEL POSITIVE LAB B100.4000 Normal Antibody NEGATIVE Screen Performed By: #### B101.7450 #### [facility] [address] [place], [address] FALLOPIAN TUBES/STERILIZATION Observed: 02/14/2018 Status: F Source: [place] 12:00 AM [facility] REPOSITORY Patient: JENNYFER REN : 1985 (32/F) Acct Num: [id number] Phys: Armond Pineda MD Unit Num: [id number] Loc: WP KY524-5 Specimen: [id number] Received: 02/14/18653 Spec Type: FALL TUBES TISSUES 1 TISSUES: Fallopian tube GROSS DESCRIPTION Received in fixative is one container labeled with the patient's name and designated right side tube. The specimen consists of a dudley-pink cyst measuring 4 x 4 x 2 cm and weighing 18 gm. The cyst surface is smooth. The cyst is filled with clear fluid. The inner cyst wall is also smooth without any papillation. Bar Waiter/Waitress sections are submitted in two cassettes. / Hair 02/14/18 TC:5 CPT: 94058 HEADER OPERATION: Bilateral tubal occlusion with Filshie clips PRE-OP DIAGNOSIS: Desires sterilization TISSUE SUBMITTED: Right side tube MICROSCOPIC DESCRIPTION Slides are reviewed. MICROSCOPIC DIAGNOSIS Right side tube: Consistent with paratubal cyst. SUZIE:vianey 02/15/18 Signed Kang Stevenson 02/15/18 <signature on file> Performed By: #### PFALS #### [facility] [address] [place], [address] GROUP B STREP DNA Collected: 01/22/2018 Status: F Source: [place] BY PCR 1:45 PM [facility] REPOSITORY Order Comment: Source: Vaginal-Rectal TYPE CODE TESTS RESULT OUT OF RANGE REFERENCE UNITS LAB L8200.0100 Negative Normal GBS TEST Negative RESULT Performed By: #### L8200.0000 #### [facility] [address] [place], [address] Observed: 01/22/2018 Status: F Source: [place] CULTURE, GROUP B 12:00 AM [facility] STREPTOCOCCUS REPOSITORY RAMONA Culture Group B Beta Streptococcus is not isolated. Performed By: #### M100.1800 #### [facility] [address] [place], [address] GLUCOSE CHALLENGE GEST Collected: 11/27/2017 Status: F Source: [place] 1H 50G 11:15 AM [facility] REPOSITORY TYPE CODE TESTS RESULT OUT OF RANGE REFERENCE UNITS LAB L501.0250 70-140 mg/dL High GLU GEST 224 50g 1H Performed By: #### L501.0250 #### [facility] [place], [address] CBC-COMPLETE BLOOD CNT Collected: 11/27/2017 Status: F Source: [place] NO DIFF 11:15 AM [facility] REPOSITORY TYPE CODE TESTS RESULT OUT OF RANGE REFERENCE UNITS LAB L100.1000 4.4-11.0 K/mm3 Normal WBC 7.2 LAB L100.1200 4.2-5.4 M/mm3 Low RBC 3.92 LAB L100.1300 12.0-15.0 g/dl Low HGB 11.7 LAB L100.1400 37-47 % Low HCT 35.6 LAB L100.1500 81-99 fL Normal MCV 90.8 LAB L100.1600 27.0-32.0 pg Normal MCH 29.8 LAB L100.1700 32-36 g/gl Normal MCHC 32.9 LAB L100.1810 11.6-14.6 % Normal RDW CV 13.2 LAB L100.1820 35.1-43.9 fl Normal RDW SD 43.1 LAB L100.1900 150-450 K/mm3 Normal PLT 244 LAB L100.2000 6.2-12.0 fl Normal MPV 10.1 Performed By: #### L100.0500 #### [facility] [address] [place], [address] EMERGENCY DEPARTMENT Observed: 08/10/2017 Status: F Source: [place] SUMMARY 2:53 PM [facility] REPOSITORY [facility] Medical Records Department [address] [place] [address] Emergency Department Summary 08/03/17 2336 MR#: [id number] Acct: [id number] Name: JENNYFER REN Rep #: [id number] : 1985 31 From: Ambrocio Zavaleta DO PCP: Helen Bryant DO Status: DEP ER - ER Visit Summary Date of Service: 08/03/17 Chief Complaint: Sore on bottom History of Present Illness: The patient is a 31 F who is 11 weeks . She states that for the past week she has had discomfort on the right buttock near the midline. Patient states is progressively gotten worse in this evening she noted some bleeding. No fevers. No history of prior abscesses. Physical Examination: Afebrile vital signs are stable Gen: Well-nourished well-developed Head: Normocephalic atraumatic Eyes: Perrl EOMI ENT: TMs clear no rhinorrhea moist mucous membranes Neck: Supple no lymphadenopathy no JVD nontender CVS: Regular rate rhythm no murmurs normal S1-S2 Respiratory: No distress clear to auscultation bilaterally chest nontender Abdomen: Soft nontender nondistended normal bowel sounds no masses Back: Nontender Extremity: Nontender no edema Skin: There is an obvious pointing abscess with some fluctuance in the right buttock near the midline. There is some surrounding erythema. Neuro: alert orientated 3 CN II-XII intact normal strength sensation reflexes gait cerebellar Psych: Normal affect normal mood Emergency Department Course and Treatment: Patient provided informed consent for the incision and drainage of the abscess. 1% lidocaine instilled into the skin of the pointing abscess. A cross incision was made with large amount of pus removed. The wound was probed for loculations and irrigated. It was packed with half-inch iodoform gauze. Patient will be placed on clindamycin because of the surrounding erythema. She will follow-up in 3 days for wound check and packing removal. Impression: 1. Right buttock abscess 2. Incision and drainage by physician This note was generated with [employer] dictation software. It may contain incorrect words, spelling, and punctuation that were not noted in review of the chart prior to signing ED Disposition - Plan for ED Patient: Disposition: Home or Assisted Living Chief Complaint: Wound Check Instructions: ED Abscess IandD Prescriptions: Clindamycin HCl [Cleocin] 300 mg PO Q6H #40 cap Referrals: Helen Bryant DO [Primary Care Provider] - (in 3 days for packing removal) What to do if you have Problems For any increased pain, shortness of breath, bleeding, nausea or vomiting, chest pain, or any unexpected problems, contact your Primary Care Provider. Call [facility] ([phone]) or report to the closest Emergency Room. Call 911 if necessary. 08/10/17 2083 <Electronically signed by Ambrocio Zavaleta DO> Date Ambrocio Zavaleta DO Cosigner Signature (If Indicated): Date CC: Helen Bryant DO URINE DRUG SCREEN Collected: 07/20/2017 Status: F Source: [place] (VISTA) 11:49 AM [facility] REPOSITORY Order Comment: List of Drugs Taken or Suspected? U TYPE CODE TESTS RESULT OUT OF RANGE REFERENCE UNITS LAB L505.0075 TO BE Normal CONFIRMED Result Comment: CONFIRMATORY TESTING FOR ALL POSITIVE URINE DRUG SCREEN RESULTS WILL ONLY BE SENT OUT UPON PHYSICIAN ORDER. VISTA Urine Drug Screen methods provide only preliminary analytical test results. A more specific alternate chemical method must be used in order to obtain a confirmed analytical result. Gas chromatography/mass spectrometery (GC/MS) is the preferred confirmatory method. Clinical consideration and professional judgement should be applied to any drug of abuse test result, particularly when preliminary positive results are used. URINE TCA TESTING MUST BE ORDERED SEPARATELY. USE TEST MNEMONIC: [facility] LAB L505.5005 VISTA UDS PH 6 Normal LAB L505.5015 <1000 ng/mL AMPHETAMINES Normal NEGATIVE LAB L505.5025 < 200 ng/mL BARBITIURATES Normal NEGATIVE LAB L505.5035 < 200 ng/mL BENZODIAZIPINE Normal NEGATIVE LAB L505.5045 < 300 ng/mL COCAINE Normal NEGATIVE LAB L505.5055 < 500 ng/mL ECSTACY Normal NEGATIVE LAB L505.5065 < 300 ng/mL METHADONE Normal NEGATIVE LAB L505.5075 < 300 ng/mL OPIATES Normal NEGATIVE LAB L505.5085 < 25 ng/mL PCP Normal NEGATIVE LAB L505.5095 < 50 ng/mL THC Normal NEGATIVE Performed By: #### L505.5000, L505.6240 #### [facility] [address] [place], [place], [id number] NICOTINE URINE DRUG Collected: 07/20/2017 Status: F Source: [place] SCREEN 11:49 AM [facility] REPOSITORY Order Comment: List of Drugs Taken or Suspected? U TYPE CODE TESTS RESULT OUT OF RANGE REFERENCE UNITS LAB L505.6250 TO BE Normal CONFIRMED Result Comment: CONFIRMATORY TESTING FOR ALL POSITIVE URINE DRUG SCREEN RESULTS WILL ONLY BE SENT OUT UPON PHYSICIAN ORDER. The results of Urine Drug Screen methods provide only preliminary analytical test results. A more specific alternate chemical method must be used in order to obtain a confirmed analytical result. Gas chromatography/mass spectrometery (GC/MS) is the preferred confirmatory method. Clinical consideration and professional judgement should be applied to any drug of abuse test result, particularly when preliminary positive results are used. LAB L505.6270 <200 ng/mL Normal COT DRG Negative SCREEN Result Comment: Cotinine is the first-stage metabolite of Nicotine. Performed By: #### L505.5000, L505.6240 #### [facility] [address] [place], [place], [address] URINALYSIS, ROUTINE Collected: 07/20/2017 Status: F Source: [place] (DIPSTICK) 11:49 AM [facility] REPOSITORY Order Comment: How was Urine Obtained? CLEAN CATCH TYPE CODE TESTS RESULT OUT OF RANGE REFERENCE UNITS LAB L400.3000 Yellow COLOR Normal Yellow LAB L400.3050 Clear Normal CLARITY Clear LAB L400.3200 Normal mg/dl Normal GLUCOSE, UR Normal LAB L400.3300 Negative mg/dL Normal BILIRUBIN URINE Negative LAB L400.3400 Negative mg/dl Normal KETONE UR Negative LAB L400.3465 1.002-1.030 Normal SP.GR. DIPSTX 1.020 LAB L400.3550 5.0 - 8.0 pH UR Normal 6.5 LAB L400.3600 Negative mg/dl High PROT 15 DIPSTX LAB L400.3700 Normal mg/dl Normal UROBILI Normal LAB L400.3750 Negative Normal NITRITE UR Negative LAB L400.3780 Negative /ul High 10 OCCULT BLOOD-UR LAB L400.3800 Negative /ul High LEUK 25 ESTERASE Performed By: #### L400.2010 #### [facility] [address] [place], [place], [address] THYROID STIM HORMONE Collected: 07/20/2017 Status: F Source: [place] (TSH) 11:49 AM [facility] REPOSITORY Order Comment: PLEASE ADD T3F AND T4F TO LABS DRAWN THIS MORNING TYPE CODE TESTS RESULT OUT OF RANGE REFERENCE UNITS LAB L501.9520 0.358-3.74 uIU/mL High TSH 5.16 Performed By: #### L501.9520, L501.71553, L506.0400 #### [facility] [address] [place], [place], [address] FREE T3 Collected: 07/20/2017 Status: F Source: [place] 11:49 AM [facility] REPOSITORY Order Comment: PLEASE ADD T3F AND T4F TO LABS DRAWN THIS MORNING TYPE CODE TESTS RESULT OUT OF RANGE REFERENCE UNITS LAB L501.49427 2.18-3.98 pg/mL Normal FREE T3 2.6 Performed By: #### L501.9520, L501.32676, L506.0400 #### [facility] [address] [place], [place], [address] T4 FREE DIRECT Collected: 07/20/2017 Status: F Source: [place] 11:49 AM [facility] REPOSITORY Order Comment: PLEASE ADD T3F AND T4F TO LABS DRAWN THIS MORNING TYPE CODE TESTS RESULT OUT OF RANGE REFERENCE UNITS LAB L506.0400 0.76-1.46 ng/dL Normal T4 FREE 0.81 DIRECT Performed By: ####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 06/29/2017 Secondary NOT GIVENUNK [place] Insurance:SELF PAY [facility] Number: Effective Repository Date:2017-06-29 06/02/2017 Jennyfer Zambrano) Malik Primary Jennyfer ([place]) Malik Danna [id number] Insurance:CARESOURCEP NaaderDOB: [facility] Number: [id number] General Hospital [address]Mbj: [id number] Repository Date:2017-06-02P O () [address]ATTN: [place] [address]MN: 06/02/2017 Secondary NOT GIVENUNK [place] Insurance:SELF PAY [facility] Number: Effective Repository Date:2017-06-02 05/10/2017 Jennyfer ([place]) Malik [facility] Jennyfer ([place]) Malik [place] [id number] [facility] Insurance:CARESOURCEP NaaderDOB: [facility] jorge Shultz Number: [id number] General Hospital [address]Ime: [id number] Repository Date:2017-05-10P O () [address]ATTN: [place] [address]BQ: 05/10/2017 Secondary NOT GIVENUNK [place] Insurance:SELF PAY [facility] Number: Effective Repository Date:2017-05-10
== END ==
PROVIDERS: Visit Provider Obstetrics & Gynecology
DX: R30.0 Dysuria (principal)
CPT/HCPCS: 87086

== ENCOUNTER → 2018-05-22 10:46 | Outpatient (CLI) | payer MEDICAID, SELFPAY ==
[2018-03-22 13:10] VITALS: BMI 41.4
== END ==
PROVIDERS: Referring Provider Obstetrics & Gynecology; Visit Provider Obstetrics & Gynecology
DX: N39.0 Urinary tract infection, site not specified (principal)
CPT/HCPCS: 87077; 87086; 87088; 87186

== ENCOUNTER 2018-09-30 14:21 | Emergency (ER) | payer MEDICAID, SELFPAY ==
[2018-03-22 13:10] VITALS: BMI 41.4
[2018-09-30 14:22] VITALS: BP 152/84; PULSE 80; RESP 16; TEMP 36.5; BMI 42.7
--- NOTE | 2018-09-30 15:24 | ED.VISSUMM ---
- ER Visit Summary Date of Service: 09/30/18 Chief Complaint: [Eye redness] History of Present Illness: The patient is a 33 F resents the emergency department complaint of eye redness that started 5 days ago initially in the right eye. Patient states the following morning she woke up with a eye that was matted shut. Patient had tearing from the eye. Yesterday patient developed redness and tearing in the left eye as well. Patient was seen 2 days ago at urgent care and started on Cipro drops and also p.o. prednisone. Today patient had a lot of tearing and some blurred vision associated with it so she came into the ER to be evaluated. Patient describes a stinging sensation at times. Patient denies any fevers or cough. She denies recent illness. She denies any chemical exposures to the eye.] Physical Examination: [HEENT-PERRLA, EOMI. Cranial nerves II through XII grossly intact. TMs clear. Mucous membranes moist. No adenopathy. Patient has diffuse conjunctival erythema bilaterally. No significant drainage noted. No foreign bodies noted when eyelids are everted bilaterally. I stained the eye with floor seen however did not have a blue pen line attempt to use a greenlight to evaluate the cornea and do not appreciate any dendritic lesions or obvious corneal abrasions. Cardiovascular-regular rate and rhythm without murmur or ectopy Lungs-clear to auscultation, chest wall stable without crepitus or subcu emphysema Abdomen-normoactive bowel sounds, soft, nontender, no rebound or rigidity, no peritoneal signs. Extremities-intact ?4, normal range of motion, normal pulses, atraumatic] Test Results: [None indicated] Emergency Department Course and Treatment: [I discussed case with Dr. Vasquez who is on for ophthalmology who would be happy to see the patient in the office tomorrow. Based on our discussion and was felt that symptoms likely viral. I advised patient to attempt antihistamine eyedrops and cool compresses to the eyes.] Treatment Plan: [Follow-up with ophthalmology tomorrow. He is to continue with prednisone and the Cipro drops.] Disposition: [Discharged home in stable condition] Impression: [Bilateral conjunctivitis] This note was generated with [employer] dictation software. It may contain incorrect words, spelling, and punctuation that were not noted in review of the chart prior to signing ED Disposition - Plan for ED Patient: Referrals: Helen Bryant DO [Primary Care Provider] -
--- NOTE | 2018-09-30 15:27 | ED.DCSUM_ITS ---
- ER Visit Summary Date of Service: 09/30/18 Chief Complaint: [Eye redness] History of Present Illness: The patient is a 33 F resents the emergency department complaint of eye redness that started 5 days ago initially in the right eye. Patient states the following morning she woke up with a eye that was matted shut. Patient had tearing from the eye. Yesterday patient developed redness and tearing in the left eye as well. Patient was seen 2 days ago at urgent care and started on Cipro drops and also p.o. prednisone. Today patient had a lot of tearing and some blurred vision associated with it so she came into the ER to be evaluated. Patient describes a stinging sensation at times. Patient denies any fevers or cough. She denies recent illness. She denies any chemical exposures to the eye.] Physical Examination: [HEENT-PERRLA, EOMI. Cranial nerves II through XII cj sly intact. TMs clear. Mucous membranes moist. No adenopathy. Patient has diffuse conjunctival erythema bilaterally. No significant drainage noted. No foreign bodies noted when eyelids are everted bilaterally. I stained the eye with floor seen however did not have a blue pen line attempt to use a greenlight to evaluate the cornea and do not appreciate any dendritic lesions or obvious corneal abrasions. Cardiovascular-regular rate and rhythm without murmur or ectopy Lungs-clear to auscultation, chest wall stable without crepitus or subcu emphysema Abdomen-normoactive bowel sounds, soft, nontender, no rebound or rigidity, no peritoneal signs. Extremities-intact ?4, normal range of motion, normal pulses, atraumatic] Test Results: [None indicated] Emergency Department Course and Treatment: [I discussed case with Dr. Vasquez who is on for ophthalmology who would be happy to see the patient in the office tomorrow. Based on our discussion and was felt that symptoms likely viral. I advised patient to attempt antihistamine eyedrops and cool compresses to the eyes.] Treatment Plan: [Follow-up with ophthalmology tomorrow. He is to continue with prednisone and the Cipro drops.] Disposition: [Discharged home in stable condition] Impression: [Bilateral conjunctivitis] This note was generated with [employer] dictation software. It may contain incorrect words, spelling, and punctuation that were not noted in review of the chart prior to signing ED Disposition - Plan for ED Patient: Referrals: Helen Bryant DO [Primary Care Provider] -
--- NOTE | 2018-09-30 15:30 | ED.DEP ---
ED Disposition - Plan for ED Patient: Instructions: ED Allergic Conjunctivitis, ED Conjunctivitis Bacterial, ED Conjunctivitis Viral Ch Referrals: Helen Bryant DO [Primary Care Provider] - Jose Eduardo Vasquez MD [STAFF PHYSICIAN] - 1 Day for another exam
== END 2018-09-30 15:46 | disposition home or self-care (01) ==
PROVIDERS: Emergency Provider Emergency Medicine
DX: H10.9 Unspecified conjunctivitis (principal); Z79.52 Long term (current) use of systemic steroids; Z79.899 Other long term (current) drug therapy
CPT/HCPCS: 99283

== ENCOUNTER 2019-02-08 20:53 | Emergency (ER) | payer MEDICAID, SELFPAY ==
[2019-02-08 20:54] VITALS: BP 157/89; PULSE 79; RESP 15; TEMP 36.8; O2SAT 98; BMI 40.7
--- NOTE | 2019-02-08 21:04 | ED.VIS.GEN ---
History of Present Illness Chief Complaint: Other, Pain/Inj Informant: Patient Onset: Days Context: Sudden Onset Timing: Continuous Quality: Pain Location: Distal left index finger Current Severity: Mild Maximum Severity: Moderate Worsened by: Any type of pressure Relieved by: Better if not used Associated Symptoms: No associated symptoms Narrative: Patient presents because she is concerned her left index finger is infected. She denies fever, chills night sweats. She denies history of diabetes. She denies paresthesia, anesthesia or motor weakness. Prior similar symptoms: No Recent Illness/Hospitalization: No - Past Medical History (1) No significant past medical history Status: Acute Past Medical History - Allergies and Home Meds Allergies/Adverse Reactions: Allergies No Known Allergies Allergy (Verified 02/08/19 20:57) Primary Care Physician: Helen Bryant DO [Primary Care Provider] - Prior records reviewed: No Past Medical History: None Surgical History: noncontributory Lives: With Family Smoking Status: Never smoker Alcohol: None Review of Systems General: Denies: Chills, Fever, Malaise, Sweats Musculoskeletal: Reports: Swelling, Extremity Pain. Denies: Myalgias, Arthralgias, Neck pain, Back pain, -, - Skin: Reports: Abscess. Denies: Rash, Abrasions, Wounds, -, - Neurological: Denies: Weakness, Parasthesia, Numbness Hematologic: Denies: Easy bruising, Easy bleeding Allergy: Denies: Uticaria, Swelling of the mouth Physical Exam Vital Signs/Narrative: Vital Signs Temp Pulse Resp BP Pulse Ox 02/08/19 20:54 98.3 F 79 15 157/89 H 98 Inital Vital Signs reviewed: Yes General: Well nourished, Well developed, No Acute Distress Head: Normocephalic, Atraumatic Eyes: Perrl, EOMI. Negative for: Pale conjunctiva, Scleral icterus Cardiovascular: Regular rate, Regular rhythm, No murmurs Respiratory: No distress, CTA bilaterally Extremities: No edema, Tenderness - There is swelling of the distal left index finger over the pulp. There is fluctuance noted near the nail. There is purulent material noted. The distal index finger is slightly erythematous. Is no lymphangitis. There is no pain the patient over the flexor tendon sheath. There is no obvious subungual hematoma or evidence of purulent material under the nail. She is able to flex and extend at the DIP joint. There is no pain palpation of the DIP joint. Furthermore there is no warmth or bogginess appreciated.. Negative for: Nontender Neurological: Alert, Oriented x3, Normal Strength, Normal Sensation Psychological: Normal affect, Normal Mood Diagnostic/Tx/Re-eval - Medical Decision Making Vision has a felon. Will anesthetize digit and incision will be made over the fluctuant area. Please read procedure note. Procedures Procedure(s): 1. Left index finger was anesthetized by digital block. A total of 4 cc 1% lidocaine was instilled. 2. The finger was prepped draped sterile manner. Incision was made using a 15 blade. There was significant amount of fluid that was under pressure. Approximate 1 cc of purulent liquid drained from the incised site. Blunt dissection was undertaken. The nail is loose. Patient was informed she may lose her nail. ED Disposition - Plan for ED Patient: Disposition: Home or Assisted Living Diagnosis: Felon of finger Instructions: ABSCESS, Incision and Drainage Prescriptions: Clindamycin HCl [Cleocin] 300 mg PO Q6H #28 cap Prescription Printed Hydrocodone Bitart/Apap 5-325 [Sturgeon 5MG-325MG] 1 tab PO Q6H PRN PRN 3 Days #10 tab PRN Reason: Pain Prescription Printed Referrals: Helen Bryant DO [Primary Care Provider] - 2 Days for wound check Additional Instructions: If you are not able to see your doctor on Monday please return for reevaluation.
[2019-02-08] MEDS: Clindamycin HCl 150 MG Capsule 300 MG PO (21:45)
[2019-02-08 21:46] VITALS: BP 156/102; PULSE 77; RESP 14
== END 2019-02-08 21:57 | disposition home or self-care (01) ==
PROVIDERS: Emergency Provider Emergency Medicine
DX: L03.012 Cellulitis of left finger (principal); Z79.899 Other long term (current) drug therapy
CPT/HCPCS: 26011; 99283

== ENCOUNTER → 2019-07-01 | Outpatient (CLI) | payer MEDICAID, SELFPAY ==
[2019-07-05 11:33] LABS: HPV APTIMA, High Risk Negative (Negative); HPV Reflexed? YES, CHARGE PATIENT
== END | disposition home or self-care (01) ==
LOC: LABSPEC 15:41
PROVIDERS: Visit Provider Obstetrics & Gynecology
DX: Z12.4 Encounter for screening for malignant neoplasm of cervix (principal)
CPT/HCPCS: 87624; 88175; G0145

== ENCOUNTER 2019-10-21 09:38 | Emergency (ER) | payer MEDICAID, SELFPAY ==
[2019-10-21 09:39] VITALS: BP 144/99; PULSE 74; RESP 16; TEMP 36.2; O2SAT 100; BMI 39.1
[2019-10-21 09:41] VITALS: BP 144/99; PULSE 74; RESP 16; TEMP 36.2; O2SAT 100
--- NOTE | 2019-10-21 10:08 | ED.VIS.GEN ---
History of Present Illness Chief Complaint: Sore Throat Informant: Patient Onset: Days Context: Gradual Onset Timing: Continuous Current Severity: Mild Maximum Severity: Moderate Narrative: Patient is a 34-year-old female with history of tonsillectomy presenting with sore throat and cough. Patient states she had symptoms for 2 to 3 days. Patient states it is painful to swallow but is not having difficulty handling her secretions. Patient also notes she has developed a dry cough. She has discomfort in her chest that she points to her sternal notch as the area. She denies any shortness of breath or difficulty breathing. Patient states people she was on vacation with from to September 25 just tested positive for coronavirus on Monday. Patient is not seen him since September 25 however as they live in [place]. Patient states she is felt like this was strep throat and is concerned she might just have strep throat. 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 Patient denies any other complaints at this time. Past Medical History - Allergies and Home Meds Allergies/Adverse Reactions: Allergies No Known Allergies Allergy (Verified 02/08/19 20:57) Primary Care Physician: Helen Bryant DO [Primary Care Provider] - Past Medical History: None Surgical History: noncontributory Smoking Status: Former smoker Review of Systems General: Reports: Malaise. Denies: Chills, Fever, Sweats Eyes: Denies: Visual changes - bilaterally, Diplopia ENT: Reports: Sore throat. Denies: Rhinorrhea Cardiovascular: Denies: Palpitations, Heart racing Respiratory: Reports: Cough. Denies: Dyspnea, Dyspnea on exertion Gastrointestinal: Denies: Abdominal pain, Nausea, Vomiting, Diarrhea, Melena, Hematochezia Genitourinary: Denies: Dysuria, Hematuria, Frequency Musculoskeletal: Denies: Back pain, Extremity Pain Skin: Denies: Rash, Wounds Neurological: Denies: Headache, Weakness, Numbness Physical Exam Vital Signs/Narrative: Vital Signs Temp Pulse Resp BP Pulse Ox 10/21/19 09:41 97.2 F L 74 16 144/99 H 100 10/21/19 09:39 97.2 F L 74 16 144/99 H 100 Inital Vital Signs reviewed: Yes General: Well nourished, Well developed, No Acute Distress Head: Normocephalic, Atraumatic Eyes: Perrl, EOMI ENT: Moist mucous membranes, No rhinorrhea, TM's clear, - - Status post tonsillectomy, no significant erythema, edema or exudate of the pharynx, easily handling secretions. Negative for: Nasal congestion Neck: Supple, Nontender, No JVD Cardiovascular: Regular rate, Regular rhythm, No murmurs Respiratory: No distress, CTA bilaterally, Chest nontender Abdomen: Soft, Nontender, Nondistended, Normal bowel sounds Back: Nontender, Normal Inspection Extremities: Nontender, No edema Skin: Normal color, No rash Neurological: Alert, Oriented x3, Cranial nerves II-XII grossly intact, Normal Strength, Normal Sensation Psychological: Normal affect, Normal Mood Diagnostic/Tx/Re-eval Chest X-Ray - ED: 1 View, Read by ED Physician, Read by Radiologist, No Acute Disease Clinical Impression(s) from Imaging Studies Chest X-Ray 10/21/19 10:30 IMPRESSION: Normal x-ray examination of the chest. Electronically Signed: Tr Leivavic, at 11:23 EDT , Service support , - Medical Decision Making Patient is evaluated for 2 to 3 days of sore throat, chest tightness and malaise. She has contacts from a couple weeks ago who ultimately test positive for coronavirus. Patient's exam is quite benign. She is hemodynamically stable. She not having any signs of respiratory distress and has clear breath sounds. Chest x-rays not show any acute infiltrate. Strep swab is negative. Patient is tested for coronavirus but it will take 2- 5 days as it is not currently a send out. 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 She is given a work note. Patient is PE RC negative. I do not suspect a more sinister cardiopulmonary process as the cause of her symptoms I do not think blood work is indicated at this time. Patient is counseled on signs and symptoms requiring return to the emergency room. Patient verbalizes agreement and understand this plan. Patient discharged home in stable and improved condition. ED Disposition - Plan for ED Patient: Disposition: Home or Assisted Living Diagnosis: Sore throat, Cough, COVID-19 virus test result unknown Referrals: Helen Bryant [Primary Care Provider] - Additional Instructions: No signs of pneumonia or strep throat today. The exact cause your symptoms not clear but my concern is a viral infection. You been tested for coronavirus. This test will take 2 to 5 days to result. Until then treat yourself as if you have coronavirus and do not return to work, self quarantine and avoid contact with others if possible.
--- NOTE | 2019-10-21 10:30 | RAD_ITS ---
STUDY: X-RAY CHEST REASON FOR EXAM: Female, 34 years old. Sore throat, mild shortness of breath, recently in [place] with COVID exposure TECHNIQUE: Single AP portable view of the chest. COMPARISON: None. FINDINGS: The lungs are clear and expanded. There is no demonstrated pleural abnormality. Normal size heart. Normal mediastinum and katerina. Normal visualized pulmonary arteries. Normal visualized aortic arch and descending thoracic aorta. Normal visualized thoracic spine. Normal visualized ribs, clavicles, and shoulders. There is no demonstrated abnormality of the visualized soft tissue structures of the upper abdomen. RAD/Chest 1 View (Portable) IMPRESSION: Normal x-ray examination of the chest. Electronically Signed: Tr Elder, at 11:23 EDT , Service support ,
[2019-10-21] MEDS: dexAMETHasone 10 MG/ML Vial 8 MG PO.IVFORM (11:17)
[2019-10-21 11:52] VITALS: BP 124/77; PULSE 69; RESP 15; O2SAT 98
== END 2019-10-21 11:53 | disposition home or self-care (01) ==
PROVIDERS: Emergency Provider Emergency Medicine
DX: J02.9 Acute pharyngitis, unspecified (principal); R05 Cough; Z20.828 Contact with and (suspected) exposure to other viral communicable diseases; Z87.891 Personal history of nicotine dependence
CPT/HCPCS: 71045; 87635; 87880; 99283; C9803; G2023; U0003

== ENCOUNTER 2020-02-09 13:36 | Emergency (ER) | payer MEDICAID, SELFPAY ==
[2020-02-09 13:37] VITALS: BP 145/96; PULSE 83; RESP 18; TEMP 35.8; O2SAT 100; BMI 38.2
--- NOTE | 2020-02-09 14:45 | CT_ITS ---
HISTORY: MID ABD PAIN ADDITIONAL HISTORY: None provided. EXAMINATION/TECHNIQUE: CT Abdomen And Pelvis W/ Contrast Injection CONTRAST: IV 100mL Isovue-300 IV contrast. Enteric contrast was not given. A radiation dose optimization technique was used for this scan. Number of images including paperwork: [id number] COMPARISON: None FINDINGS: LOWER THORAX: No consolidation or pleural effusion. LIVER: No concerning focal lesion. GALLBLADDER: Nonvisualized, likely surgically absent. BILE DUCTS: No significant biliary dilatation. SPLEEN: Unremarkable. PANCREAS: Unremarkable. ADRENAL GLANDS: Unremarkable. KIDNEYS/URETERS: Unremarkable. BOWEL: No bowel obstruction. No significant bowel wall thickening. No localized inflammation. APPENDIX: Normal. FREE FLUID: No significant free fluid. FREE AIR: None. LYMPH NODES: No pathologic appearing adenopathy. PERITONEUM, RETROPERITONEUM AND MESENTERY: Otherwise unremarkable. VASCULATURE: Unremarkable as imaged. PELVIS: Unremarkable bladder. To the ligation clips. No pelvic mass. ABDOMINAL WALL: Unremarkable. OSSEOUS AND SOFT TISSUE STRUCTURES: No acute skeletal findings. CT/Abdomen/Pelvis W IV Cont ONLY IMPRESSION: No acute abdominopelvic abnormality. Individualized dose optimization techniques were used for this CT. at 1741 Reported and signed by: Ashwini Gipson MD Electronically Signed: Ashwini Gipson MD at 17:40 EDT Tel , Service support ,
[2020-02-09] MEDS: 0.9% Normal Saline 1,000 ML 1000 ML IV (15:31)
[2020-02-09] MEDS: Ketorolac 15 MG/ML Vial IV (15:34)
[2020-02-09 15:36] VITALS: BP 123/79; PULSE 65; RESP 18; O2SAT 100
[2020-02-09 15:36] LABS: Mucous, Urine 0 SEEN /hpf (<or=2+); Red Blood Cells-Urine 0 SEEN /hpf (0-5)
[2020-02-09 15:40] LABS: Absolute Lymphocyte Count 2.19 X10^3/uL (0.83-4.51); Absolute Neutrophil Count 2.9 X10^3/uL (2.0-7.7); Basophil# 0.04 X10^3/uL; Basophil% 0.7 % (0-1); Eosinophil# 0.15 X10^3/uL; Eosinophils% 2.6 % (0-5); Hematocrit 33.7 % (37-47); Hemoglobin 9.5 g/dL (12.0-15.0); Lymphocyte # 2.19 X10^3/ul (4.0); Lymphocyte % 38.3 % (19-41); Mean Corp Hgb Conc 28.2 g/dL (32-36); Mean Corpuscular Hgb 20.7 pg (27.0-32.0); Mean Corpuscular Volume 73.3 fL (81-99); Mean Platelet Vol. 10.4 fl (6.2-12.0); Monocyte# 0.39 X10^3/uL; Monocyte% 6.8 % (0-10); NRBC Flagged by Analyzer 0 % (0-5); Neutrophil # 2.94 X10^3/uL (2.7-7.7); Neutrophil % 51.4 % (47-70); Platelet Count 342 K/mm3 (150-450); RBC Distribution Width CV 18.2 % (11.6-14.6); RBC Distribution Width SD 47.9 fl (35.1-43.9); White Blood Count 5.7 K/mm3 (4.4-11.0)
[2020-02-09 15:58] LABS: Color, Urine Yellow (Yellow); Glucose, Dipstick Normal (Normal); Ketone-Dipstick Negative (Negative); Leukocyte Esterase-Dipstick Negative /ul (Negative); Nitrite-Dipstick Negative (Negative); Occult Blood-Urine 250 /ul (Negative); Protein-Dipstick 30 mg/dl (Negative); Specific Gravity, Urine 1.015 (1.002-1.030); Urine Bilirubin Dipstick Negative (Negative); Urine Clarity Sl. Cloudy (Clear); Urine Urobilinogen Normal (Normal)
--- NOTE | 2020-02-09 16:12 | ED.VIS.GI ---
History of Present Illness Chief Complaint: Abd Pain Informant: Patient - Abdominal Pain/Flank Pain Onset: Days Context: Gradual Onset Timing: Continuous Quality: Aching Location: Epigastric Worsened by: - - direct pressure Relieved by: Nothing - Nausea/Vomiting/Emesis GI Symptom: Negative for: Nausea, Vomiting - Diarrhea/Melena/Hematochezia GI Symptom: Negative for: Diarrhea, Melena, Hematochezia Associated Symptoms: Negative for: Dysuria, Frequency, Hematuria Narrative: Patient is a 34-year-old female denies any past medical history presenting with epigastric abdominal pain. Patient states that starting Monday morning she started noticing pain around her bellybutton and epigastric region. States it is worse when she presses on the area. Patient states the pain came again today and yesterday and seems to be worse when she pushes on the area. She describes as a dull ache. She is almost feels like her abdomen is bruised. She denies any trauma or injury to the area. She take Tylenol at home with no relief of her symptoms. She has no associated GI or symptoms such as nausea, vomiting, change in bowel habits or urinary symptoms. She denies any fever or radiation of the pain. No other complaints at this time. Past Medical History - Allergies and Home Meds Allergies/Adverse Reactions: Allergies No Known Allergies Allergy (Verified 02/09/20 13:39) Primary Care Physician: Helen Bryant DO [Primary Care Provider] - Past Medical History: None Surgical History: cholecystectomy Lives: With Family Smoking Status: Current every day smoker Review of Systems General: Denies: Chills, Fever, Sweats Eyes: Denies: Visual changes - bilaterally, Diplopia ENT: Denies: Rhinorrhea, Sore throat Cardiovascular: Denies: Chest pain, Palpitations Respiratory: Denies: Dyspnea, Cough, Dyspnea on exertion Gastrointestinal: Reports: Abdominal pain. Denies: Nausea, Vomiting, Diarrhea, Melena, Hematochezia Genitourinary: Denies: Dysuria, Hematuria, Frequency Musculoskeletal: Denies: Back pain, Extremity Pain Skin: Denies: Rash, Wounds Neurological: Denies: Headache, Weakness, Numbness Physical Exam Vital Signs/Narrative: Vital Signs Temp Pulse Resp BP Pulse Ox 02/09/20 15:36 65 18 123/79 H 100 02/09/20 13:37 96.4 F L 83 18 145/96 H 100 Inital Vital Signs reviewed: Yes General: Well nourished, Well developed, No Acute Distress Head: Normocephalic, Atraumatic Eyes: Perrl, EOMI ENT: Moist mucous membranes, No rhinorrhea Neck: Supple, Nontender Cardiovascular: Regular rate, Regular rhythm, No murmurs Respiratory: No distress, CTA bilaterally, Chest nontender Abdomen: Soft, Nondistended, Normal bowel sounds, No masses, Tender - Tenderness 2 palpation in the epigastric region.. Negative for: Guarding, Rebound tenderness, Mass Back: Nontender, Normal Inspection. Negative for: CVA tenderness Extremities: Nontender, No edema Skin: Normal color, No rash Neurological: Alert, Oriented x3, Cranial nerves II-XII grossly intact, Normal Strength, Normal Sensation Psychological: Normal affect, Normal Mood Diagnostic/Tx/Re-eval Clinical Impression(s) from Imaging Studies Abdomen/Pelvis CT 02/09/20 14:45 IMPRESSION: No acute abdominopelvic abnormality. Individualized dose optimization techniques were used for this CT. at 1741 Reported and signed by: Ashwini Gipson MD Electronically Signed: Ashwini Gipson MD at 17:40 EDT Tel , Service support , Laboratory Data 02/09/20 02/09/20 02/09/20 15:05 15:20 15:20 WBC 5.7 RBC 4.60 Hgb 9.5 L Hct 33.7 L MCV 73.3 L MCH 20.7 L MCHC 28.2 L RDW Std Deviation 47.9 H RDW Coeff of Rolly 18.2 H Plt Count 342 MPV 10.4 Immature Gran % (Auto) 0.200 Neut % (Auto) 51.4 Lymph % (Auto) 38.3 [place] % (Auto) 6.8 Eos % (Auto) 2.6 Baso % (Auto) 0.7 Absolute Neuts (auto) 2.9 Absolute Lymphs (auto) 2.19 Nucleated RBC % 0 Sodium 141 Potassium 3.8 Chloride 108 H Carbon Dioxide 28.0 Anion Gap 5 BUN 10 Creatinine 0.84 Estim Creat Clear Calc 91.77 Est GFR (MDRD) Af Amer 99 Est GFR (MDRD) Non-Af 82 BUN/Creatinine Ratio 11.8 Glucose 82 Calcium 8.4 L Total Bilirubin 0.40 AST 64 H ALT 50 Alkaline Phosphatase 90 Total Creatine Kinase Total Protein 7.2 Albumin 3.3 Globulin 3.9 Albumin/Globulin Ratio 0.8 L Lipase 107 Urine Color Yellow Urine Clarity Sl. Cloudy Urine pH 6.0 Ur Specific [place] 1.015 Urine Protein 30 H Urine Glucose (UA) Normal Urine Ketones Negative Urine Occult Blood 250 H Urine Nitrite Negative Urine Bilirubin Negative Urine Urobilinogen Normal Ur Leukocyte Esterase Negative Urine RBC 0 SEEN Urine WBC 0-5 SEEN Ur Squamous Epith Cells 0-5 SEEN Urine Bacteria RARE Urine Mucus 0 SEEN Urine Test Negative 02/09/20 15:20 WBC RBC Hgb Hct MCV MCH MCHC RDW Std Deviation RDW Coeff of Rolly Plt Count MPV Immature Gran % (Auto) Neut % (Auto) Lymph % (Auto) [place] % (Auto) Eos % (Auto) Baso % (Auto) Absolute Neuts (auto) Absolute Lymphs (auto) Nucleated RBC % Sodium Potassium Chloride Carbon Dioxide Anion Gap BUN Creatinine Estim Creat Clear Calc Est GFR (MDRD) Af Amer Est GFR (MDRD) Non-Af BUN/Creatinine Ratio Glucose Calcium Total Bilirubin AST ALT Alkaline Phosphatase Total Creatine Kinase 102 Total Protein Albumin Globulin Albumin/Globulin Ratio Lipase Urine Color Urine Clarity Urine pH Ur Specific [place] Urine Protein Urine Glucose (UA) Urine Ketones Urine Occult Blood Urine Nitrite Urine Bilirubin Urine Urobilinogen Ur Leukocyte Esterase Urine RBC Urine WBC Ur Squamous Epith Cells Urine Bacteria Urine Mucus Urine Test - Medical Decision Making Evaluated for periumbilical/epigastric abdominal pain. Is been present for the past 2 days. She does not have associated GI symptoms. On exam she does have mild tenderness in epigastric region but otherwise has a benign exam. No peritoneal signs. CT abdomen pelvis obtained to rule out hernia another acute intra-abdominal pathology as well as screening blood work including CMP, CBC and lipase. Work-up was largely negative. The exact cause of her symptoms is not clear. Patient is counseled that differential still includes muscle skeletal pain as well as gastritis/peptic ulcer disease. Patient is counseled take Tylenol as needed for discomfort and to consider starting antacid such as Pepcid. She verbalizes agreement understand this plan. ED Disposition - Plan for ED Patient: Disposition: Home or Assisted Living Diagnosis: Abdominal pain of unknown cause Instructions: ED Abdominal Pain Unkn Cause Fem Referrals: Helen Bryant DO [Primary Care Provider] - Additional Instructions: Exact cause of your pain is not clear. Your work-up was normal today and there are no signs of hernia or any acute surgical process. Please return the emergency room if you have worsening symptoms. Take Tylenol as needed for discomforts and it might be beneficial to start taking an antacid, such as pepcid, in case this is irritation of your stomach that you are feeling.
[2020-02-09 16:37] LABS: Bacteria RARE /hpf (None Seen); Squamous Epithelial Cells - UA 0-5 SEEN /hpf (5-10); White Blood Cells 0-5 SEEN /hpf (0-5)
[2020-02-09 16:38] LABS: ALB/GLOB Ratio 0.8 RATIO (0.9-2.4); AST(SGOT) 64 U/L (15-37); Alanine Aminotransfer ALT/SGPT 50 U/L (13-56); Albumin, Serum 3.3 g/dL (3.2-5.0); Alkaline Phosphatase 90 U/L (45-117); Anion Gap 5 (5-15); BUN 10 mg/dL (7-18); BUN/Creat Ratio 11.8 RATIO (10-20); Calcium,Total 8.4 mg/dL (8.5-10.1); Chloride 108 mmol/L (98-107); Creatinine, Serum 0.84 mg/dL (0.55-1.02); EST Glomerular Filtration Rate 82 mL/min (>60); Est Glom Filt Rate - Afr Amer 99 mL/min (>60); Estimated Creatinine Clearance 91.77 ml/min; Globulin 3.9 g/dL (2.2-4.2); Glucose 82 mg/dL (74-106); Lipase 107 U/L (73-393); Potassium 3.8 mmol/L (3.5-5.1); Protein, Total 7.2 g/dL (6.4-8.2); Sodium Level 141 mmol/L (136-145)
[2020-02-09 16:38] LABS: Internal QC Validated? YES +Cl - CLEAR BKGD; Pregnancy, Urine Negative Negative
[2020-02-09 17:09] LABS: CPK Total, Creatine Kinase 102 U/L (26-192)
== END 2020-02-09 18:10 | disposition home or self-care (01) ==
PROVIDERS: Emergency Provider Emergency Medicine
DX: R10.13 Epigastric pain (principal); F17.200 Nicotine dependence, unspecified, uncomplicated; Z90.49 Acquired absence of other specified parts of digestive tract
CPT/HCPCS: 74177; 80053; 81001; 81025; 82550; 83690; 85025; 96360; 99282; 99284; J7030; Q9967; A4216

== ENCOUNTER → 2020-07-08 | Outpatient (CLI) | payer MEDICAID, SELFPAY ==
[2020-07-10 21:05] LABS: HPV APTIMA, High Risk Negative (Negative); HPV Reflexed? YES, CHARGE PATIENT
== END | disposition home or self-care (01) ==
LOC: LABSPEC 10:16
PROVIDERS: Visit Provider Obstetrics & Gynecology
DX: Z12.4 Encounter for screening for malignant neoplasm of cervix (principal)
CPT/HCPCS: 87624; 88175; G0145

== ENCOUNTER 2021-06-04 13:29 | Emergency (ER) | payer MEDICAID, SELFPAY ==
[2021-06-04] VITALS (9 sets, daily range): BP systolic 122–138; BP diastolic 68–84; PULSE 70–131; RESP 16–25; TEMP 36.6–37.4; O2SAT 98–100; BMI 36.8
--- NOTE | 2021-06-04 14:32 | EKG12_ITS ---
Test Reason : DIZZINESS Blood Pressure : / mmHG Vent. Rate : 107 BPM Atrial Rate : 107 BPM P-R Int : 146 ms QRS Dur : 080 ms QT Int : 314 ms P-R-T Axes : 028 028 017 degrees QTc Int : 419 ms Sinus tachycardia Nonspecific T wave abnormality Confirmed by KRISTY ZURITA, LUIS ([id number]), food expeditor ADILENE KAUFMAN ([id number]) on 06/08/2021 6:59:35 AM Referred By: GINO Confirmed By:LUIS WAGNER MD
--- NOTE | 2021-06-04 14:32 | RAD_ITS ---
STUDY: X-RAY CHEST REASON FOR EXAM: Female, 35 years old. Fever. TECHNIQUE: Single AP portable view of the chest. COMPARISON: Comparison is made with prior study dated 10/21/2019. FINDINGS: The lungs are clear and expanded. There is no demonstrated pleural abnormality. Normal size heart. Normal mediastinum and katerina. Normal visualized pulmonary arteries. Normal visualized aortic arch and descending thoracic aorta. Normal visualized thoracic spine. Normal visualized ribs, clavicles, and shoulders. There is no demonstrated abnormality of the visualized soft tissue structures of the upper abdomen. RAD/Chest 1 View (Portable) IMPRESSION: Normal x-ray examination of the chest. Electronically Signed: Tr Elder MD at 15:40 EST ,
--- NOTE | 2021-06-04 14:34 | EDS_ITS ---
HPI HPI - Female History of Present Illness Chief Complaint: Dizziness Narrative Narrative: 35-year-old female presenting with fever and chills which started Monday. She states that when she takes Tylenol or ibuprofen the fever resolves and then returns. She admits to fever and chills. No loss of taste or smell. She does not have a cough or shortness of breath. She denies chest pain. Patient does state that she has some vague lower back pains. She denies dysuria or hematuria. She does state that she has had vaginal bleeding. She states that she had a normal period on 21 May which lasted until June 02. She states that today her period came back and she has had some spotting. She has not had to excessively change pads. Patient does express that she is describe this is nonvertiginous. Patient states that she has no history of having COVID- 19. She is unsure if she has any sick contacts. PFSH PFS Medical History Anemia Home Medications cephalexin 500 mg PO Q12 #14 cap 06/04/21 [Rx Last Taken Unknown] ferrous sulfate 325 mg PO TID 06/04/21 [History Last Taken Unknown] ondansetron 4 mg PO Q8H PRN #14 tab 06/04/21 [Rx Last Taken Unknown] Allergy/AdvReac Type Severity Reaction Status Date / Time No Known Allergies Allergy Verified 06/04/21 13:34 Surgical History History of cholecystectomy History of tonsillectomy Social History Smoking Status: Never smoker ROS ROS ED Constitutional Constitutional ED: Reports chills and fever(s) Eyes Eyes: Denies blurry vision or diplopia ENT ENT ED: Denies rhinorrhea or sore throat Cardiovascular Cardiovascular: Reports palpitations; Denies chest pain Respiratory/Chest Respiratory/Chest: Denies cough or dyspnea Gastrointestinal Gastrointestinal: Reports nausea; Denies abdominal pain, constipation, diarrhea, melena or vomiting Genitourinary Genitourinary ED: Denies dysuria or hematuria Musculoskeletal Musculoskeletal: Reports myalgias; Denies arthralgias or neck pain Integumentary Denies Abrasions or rash Neurologic Neurologic: Reports headache(s); Denies paresthesias or weakness EXAM Physical Exam Const Vital Signs: 06/04/21 13:30 06/04/21 13:32 06/04/21 14:32 Temperature 98.7 F 98 F 98 F Temperature Source Temporal Temporal Temporal Pulse Rate 131 H 131 H 120 H Respiratory Rate 18 18 18 Respiratory Effort Respiratory Pattern Blood Pressure 130/82 H 130/82 H 137/84 H Blood Pressure Mean 98 98 101 Pulse Ox 100 100 100 Oxygen Delivery Method Room Air Room Air 06/04/21 14:35 06/04/21 15:00 06/04/21 15:18 Temperature 98 F Temperature Source Temporal Pulse Rate 109 H Respiratory Rate 18 Respiratory Effort Normal Non-Labored Respiratory Pattern Normal Blood Pressure 136/82 H Blood Pressure Mean 100 Pulse Ox 99 Oxygen Delivery Method Room Air Room Air 06/04/21 15:21 06/04/21 18:06 06/04/21 20:30 Temperature 98 F 98.3 F Temperature Source Temporal Oral Pulse Rate 103 H 70 Respiratory Rate 25 H 16 Respiratory Effort Respiratory Pattern Blood Pressure 138/75 H Blood Pressure Mean 96 Pulse Ox 98 98 Oxygen Delivery Method Room Air Room Air Positive obese General Appearance ED: NAD; Negative for pallor Nutritional Appearance: obese HEENT Reports moist mucous membranes Negative for trauma Eyes PERRL and EOMs intact bilaterally General Eye ED: Negative for pale conjunctiva or scleral icterus Neck no lymphadenopathy and supple Chest Wall inspection of chest normal and palpation of chest normal Resp normal respiratory effort and clear to auscultation bilaterally Auscultation: Negative for rales, rhonchi or wheezes Cardio regular rhythm Rate: tachycardic GI normal to inspection, nondistended, normoactive bowel sounds no CVA tenderness Back/Spine Thoracic Spine / Upper Back: Negative for thoracic spinal tenderness Lumbar Spine / Lower Back: Negative for lumbar spinal tenderness Extremity normal to inspection; Negative for full ROM General Extremety ED: Negative for edema General Extremity: Negative for edema Neuro oriented x3, CN's II-XII intact bilaterally and no sensory deficits noted Sensorium / Orientation: alert Psych mental status grossly normal Skin General Skin Exam: Negative for jaundice or pallor MDM MDM MDM Narrative Medical decision making narrative: Patient presented with fever of 102.7 which was checked by myself when I evaluated her. Her heart rate was 130. Sepsis work-up was initiated. Patient's heart rate on EKG was 107 bpm and this was a sinus rhythm on my interpretation. Chest x-ray my interpretation is no acute cardiopulmonary process radiologist agree. Rapid Covid was negative. CBC shows a slight leukocytosis 12.3. Hemoglobin is normal at 13.9 so I do not believe the patient is vaginal bleeding is of concern. hCG is negative. Coagulation studies are normal. Renal function and electrolytes are normal. LFTs within normal limits. Lactic acid 1.3. Urinalysis showed 250 of occult blood however the patient is on her menstrual cycle. Leukocyte esterase is 100 with 10-25 WBCs and 10-25 squamous epithelial cells with 2+ bacteria. Patient was pancultured. After a gram of Tylenol her fever and heart rate did come down. She felt improved and she was able to eat. At this point I ordered a Covid PCR and had the patient wait here while being treated with IV fluids. Her Covid PCR was negative. She had no return of fever. The only possible source of infection will be the urinalysis which is contaminated. Given this I will give the patient a gram of Rocephin and send her home on Keflex. It is possible that she has another virus other than COVID-19. Did not find any other findings of infection except for possibly urine. Patient was counseled on all findings and is discussed at length the treatment plan and she was comfortable with going home. I will prescribe her Keflex and Zofran for home. She is encouraged to hydrate well and to treat any fevers. She is given return precautions and she understands that if her blood cultures are positive she will be called back to the ER. Patient is discharged home in stable condition. Impression: 1. SIRS 2. UTI Lab Data Labs: Laboratory Results - last 24 hr 06/04/21 06/04/21 06/04/21 15:15 15:15 15:15 WBC 12.3 H RBC 4.49 Hgb 13.9 Hct 41.3 MCV 92.0 MCH 31.0 MCHC 33.7 RDW Std Deviation 43.5 RDW Coeff of Rolly 12.8 Plt Count 286 MPV 9.7 Immature Gran % (Auto) 0.500 Neut % (Auto) 82.9 H Lymph % (Auto) 9.8 L [place] % (Auto) 6.3 Eos % (Auto) 0.3 Baso % (Auto) 0.2 Absolute Neuts (auto) 10.2 H Absolute Lymphs (auto) 1.20 Nucleated RBC % 0 PT 14.6 INR 1.2 APTT 36.4 H Sodium 137 Potassium 3.6 Chloride 104 Carbon Dioxide 29.0 Anion Gap 4 L BUN 10 Creatinine 0.79 Estim Creat Clear Calc 93.05 Est GFR (MDRD) Af Amer 105 Est GFR (MDRD) Non-Af 87 BUN/Creatinine Ratio 12.6 Glucose 120 H Lactic Acid Calcium 8.8 Total Bilirubin 0.60 AST 11 L ALT 18 Alkaline Phosphatase 71 Troponin I High Sens 3 Total Protein 7.7 Albumin 3.1 L Globulin 4.6 H Albumin/Globulin Ratio 0.7 L HCG, Quant Urine Color Urine Clarity Urine pH Ur Specific [place] Urine Protein Urine Glucose (UA) Urine Ketones Urine Occult Blood Urine Nitrite Urine Bilirubin Urine Urobilinogen Ur Leukocyte Esterase Urine RBC Urine WBC Ur Squamous Epith Cells Amorphous Sediment Urine Bacteria Urine Mucus COVID-19 (ELSA) Blood Type Antibody Screen 06/04/21 06/04/21 06/04/21 15:15 15:15 15:15 WBC RBC Hgb Hct MCV MCH MCHC RDW Std Deviation RDW Coeff of Rolly Plt Count MPV Immature Gran % (Auto) Neut % (Auto) Lymph % (Auto) [place] % (Auto) Eos % (Auto) Baso % (Auto) Absolute Neuts (auto) Absolute Lymphs (auto) Nucleated RBC % PT INR APTT Sodium Potassium Chloride Carbon Dioxide Anion Gap BUN Creatinine Estim Creat Clear Calc Est GFR (MDRD) Af Amer Est GFR (MDRD) Non-Af BUN/Creatinine Ratio Glucose Lactic Acid 1.3 Calcium Total Bilirubin AST ALT Alkaline Phosphatase Troponin I High Sens Total Protein Albumin Globulin Albumin/Globulin Ratio HCG, Quant < 1 Urine Color Urine Clarity Urine pH Ur Specific [place] Urine Protein Urine Glucose (UA) Urine Ketones Urine Occult Blood Urine Nitrite Urine Bilirubin Urine Urobilinogen Ur Leukocyte Esterase Urine RBC Urine WBC Ur Squamous Epith Cells Amorphous Sediment Urine Bacteria Urine Mucus COVID-19 (ELSA) Blood Type O POSITIVE Antibody Screen NEGATIVE 06/04/21 06/04/21 16:14 16:27 WBC RBC Hgb Hct MCV MCH MCHC RDW Std Deviation RDW Coeff of Rolly Plt Count MPV Immature Gran % (Auto) Neut % (Auto) Lymph % (Auto) [place] % (Auto) Eos % (Auto) Baso % (Auto) Absolute Neuts (auto) Absolute Lymphs (auto) Nucleated RBC % PT INR APTT Sodium Potassium Chloride Carbon Dioxide Anion Gap BUN Creatinine Estim Creat Clear Calc Est GFR (MDRD) Af Amer Est GFR (MDRD) Non-Af BUN/Creatinine Ratio Glucose Lactic Acid Calcium Total Bilirubin AST ALT Alkaline Phosphatase Troponin I High Sens Total Protein Albumin Globulin Albumin/Globulin Ratio HCG, Quant Urine Color Yellow Urine Clarity Sl. Cloudy Urine pH 7.0 Ur Specific [place] 1.010 Urine Protein 30 H Urine Glucose (UA) Normal Urine Ketones Negative Urine Occult Blood 250 H Urine Nitrite Negative Urine Bilirubin Negative Urine Urobilinogen 1 H Ur Leukocyte Esterase 100 H Urine RBC 10-25 SEEN Urine WBC 10-25 SEEN Ur Squamous Epith Cells 10-25 SEEN Amorphous Sediment 1+ PHOS Urine Bacteria 2+ Urine Mucus 0 SEEN COVID-19 (ELSA) Not Detected Blood Type Antibody Screen Radiography Diagnostic Testing: Clinical Impression(s) from Imaging Studies Chest X-Ray 06/04/21 14:32 IMPRESSION: Normal x-ray examination of the chest. Electronically Signed: Tr Elder MD at 15:40 EST , Discharge Plan Triage Chief Complaint: Dizziness ED Provider: Theodore Castano Dx/Rx/DC Orders Instructions: ED CYSTITIS Female Adult, ED Viral Syndrome (Adult) Prescriptions: New cephalexin 500 mg capsule 500 mg PO Q12 Qty: 14 RF: 0 ondansetron 4 mg tablet,disintegrating 4 mg PO Q8H PRN (Reason: nausea and vomiting) Qty: 14 RF: 0 No Action ferrous sulfate 325 mg (65 mg iron) tablet 325 mg PO TID RF: 0 Primary Care Provider: Janes Roper NP Referrals: Janes Roper NP, SAFETY ENGINEER [employer] [Primary Care Provider] - Disposition Disposition: Home, Self Care
[2021-06-04] MEDS: Acetaminophen 500 MG Tablet 1000 MG PO (15:16)
[2021-06-04] MEDS: 0.9% Normal Saline 1,000 ML 999 ML IV (15:17)
[2021-06-04 15:29] LABS: Absolute Neutrophil Count 10.2 X10^3/uL (2.0-7.7); Basophil# 0.03 X10^3/uL; Basophil% 0.2 % (0-1); Eosinophil# 0.04 X10^3/uL; Eosinophils% 0.3 % (0-5); Hematocrit 41.3 % (37-47); Hemoglobin 13.9 g/dL (12.0-15.0); Lymphocyte % 9.8 % (19-41); Mean Corp Hgb Conc 33.7 g/dL (32-36); Mean Platelet Vol. 9.7 fl (6.2-12.0); Monocyte# 0.77 X10^3/uL; Monocyte% 6.3 % (0-10); NRBC Flagged by Analyzer 0 % (0-5); Neutrophil # 10.16 X10^3/uL (2.7-7.7); Neutrophil % 82.9 % (47-70); Platelet Count 286 K/mm3 (150-450); RBC Distribution Width CV 12.8 % (11.6-14.6); RBC Distribution Width SD 43.5 fl (35.1-43.9); Red Blood Count 4.49 M/mm3 (4.2-5.4); White Blood Count 12.3 K/mm3 (4.4-11.0)
[2021-06-04 15:52] LABS: International Normalized Ratio 1.2; Prothrombin Time (Protime)PT. 14.6 SECONDS (11.7-14.9)
[2021-06-04 15:53] LABS: Partial Thromboplast Time 36.4 Seconds (24.1-36.2)
[2021-06-04 15:55] LABS: Lactic Acid 1.3 mmol/L (0.4-1.9)
[2021-06-04 16:00] LABS: ALB/GLOB Ratio 0.7 RATIO (0.9-2.4); AST(SGOT) 11 U/L (15-37); Alanine Aminotransfer ALT/SGPT 18 U/L (13-56); Albumin, Serum 3.1 g/dL (3.2-5.0); Alkaline Phosphatase 71 U/L (45-117); Anion Gap 4 (5-15); BUN 10 mg/dL (7-18); BUN/Creat Ratio 12.6 RATIO (10-20); Calcium,Total 8.8 mg/dL (8.5-10.1); Chloride 104 mmol/L (98-107); Creatinine, Serum 0.79 mg/dL (0.55-1.02); EST Glomerular Filtration Rate 87 mL/min (>60); Est Glom Filt Rate - Afr Amer 105 mL/min (>60); Estimated Creatinine Clearance 93.05 ml/min; Globulin 4.6 g/dL (2.2-4.2); Glucose 120 mg/dL (74-106); Potassium 3.6 mmol/L (3.5-5.1); Protein, Total 7.7 g/dL (6.4-8.2); Sodium Level 137 mmol/L (136-145); Troponin-I HS 3 pg/mL (3.0-54.0)
[2021-06-04 16:02] LABS: hCG Titer Quant., Serum < 1 mIU/mL (1-3)
[2021-06-04 16:21] LABS: Mucous, Urine 0 SEEN /hpf (<or=2+)
[2021-06-04 16:29] LABS: Color, Urine Yellow (Yellow); Glucose, Dipstick Normal (Normal); Ketone-Dipstick Negative (Negative); Leukocyte Esterase-Dipstick 100 /ul (Negative); Nitrite-Dipstick Negative (Negative); Occult Blood-Urine 250 /ul (Negative); Protein-Dipstick 30 mg/dl (Negative); Urine Bilirubin Dipstick Negative (Negative); Urine Clarity Sl. Cloudy (Clear); Urine Urobilinogen 1 mg/dl (Normal)
[2021-06-04 16:43] LABS: Bacteria 2+ /hpf (None Seen); Red Blood Cells-Urine 10-25 SEEN /hpf (0-5); Squamous Epithelial Cells - UA 10-25 SEEN /hpf (5-10); White Blood Cells 10-25 SEEN /hpf (0-5)
[2021-06-04 16:44] LABS: Amorphous Sediment 1+ PHOS
[2021-06-04] MEDS: Ceftriaxone 1 GM/50 ML BAG IV (22:13)
[2021-06-04] MEDS: Ondansetron ODT 4 MG Tablet PO (22:25)
== END 2021-06-04 22:33 | disposition home or self-care (01) ==
PROVIDERS: Emergency Provider Student in an Organized Health Care Education/Training Program; PCP Nurse Practitioner Primary Care; Visit Provider Student in an Organized Health Care Education/Training Program
DX: N39.0 Urinary tract infection, site not specified (principal); D64.9 Anemia, unspecified
CPT/HCPCS: 71045; 80053; 81001; 83605; 84484; 84702; 85025; 85610; 85730; 86850; 86900; 86901; 87040; 87077; 87086; 87088; 87426; 87635; 93005; 96361; 96365; 99285; J7030; A4216; U0003; U0005

== ENCOUNTER 2021-06-25 11:01 | Outpatient (CLI) | payer MEDICAID, SELFPAY ==
[2021-06-25 12:09] LABS: Hematocrit 41.9 % (37-47); Hemoglobin 13.9 g/dL (12.0-15.0); Mean Corp Hgb Conc 33.2 g/dL (32-36); Mean Corpuscular Hgb 30.6 pg (27.0-32.0); Mean Corpuscular Volume 92.3 fL (81-99); Mean Platelet Vol. 10.5 fl (6.2-12.0); Platelet Count 283 K/mm3 (150-450); RBC Distribution Width CV 13.5 % (11.6-14.6); RBC Distribution Width SD 45.5 fl (35.1-43.9); Red Blood Count 4.54 M/mm3 (4.2-5.4); White Blood Count 6.1 K/mm3 (4.4-11.0)
[2021-06-25 12:34] LABS: Estradiol 162.6 pg/mL; Follicle Stimulating Hormone 1.8 mIU/mL; Luteinizing Hormone 2.9 mIU/mL; T4 Free Direct 0.98 ng/dL (0.76-1.46); Thyroid Stim Hormone (TSH) 4.25 uIU/mL (0.358-3.74)
== END 2021-06-25 23:59 | disposition home or self-care (01) ==
PROVIDERS: PCP Nurse Practitioner Primary Care; Visit Provider Obstetrics & Gynecology
DX: N93.9 Abnormal uterine and vaginal bleeding, unspecified (principal)
CPT/HCPCS: 36415; 82670; 83001; 83002; 84439; 84443; 85027

== ENCOUNTER → 2021-09-10 | Outpatient (CLI) | payer MEDICAID, SELFPAY ==
[2021-09-10 11:07] LABS: Bacteria 0 SEEN /hpf (None Seen); Mucous, Urine 0 SEEN /hpf (<or=2+)
[2021-09-10 11:50] LABS: Color, Urine Yellow (Yellow); Glucose, Dipstick Normal (Normal); Ketone-Dipstick Negative (Negative); Leukocyte Esterase-Dipstick Negative /ul (Negative); Nitrite-Dipstick Negative (Negative); Occult Blood-Urine 25 /ul (Negative); Protein-Dipstick Negative (Negative); Specific Gravity, Urine 1.025 (1.002-1.030); Urine Bilirubin Dipstick Negative (Negative); Urine Clarity Clear (Clear); Urine Urobilinogen Normal (Normal)
[2021-09-10 12:05] LABS: Red Blood Cells-Urine 0-5 SEEN /hpf (0-5); Squamous Epithelial Cells - UA 0-5 SEEN /hpf (5-10); White Blood Cells 0-5 SEEN /hpf (0-5)
[2021-09-13 18:07] LABS: Chlamydia By Nucleic Acid AMP Negative (Negative)
[2021-09-13 19:00] LABS: Gonococcus By Nucleic Acid AMP Negative (Negative)
== END | disposition home or self-care (01) ==
LOC: LABSPEC 10:58
PROVIDERS: PCP Nurse Practitioner Primary Care; Visit Provider Obstetrics & Gynecology
DX: R30.0 Dysuria (principal); R10.30 Lower abdominal pain, unspecified
CPT/HCPCS: 81001; 87086; 87088; 87491; 87591

== ENCOUNTER 2021-09-23 11:04 | Day surgery (SDC) | payer MEDICAID, SELFPAY ==
[2021-09-23] VITALS (10 sets, daily range): BP systolic 113–144; BP diastolic 67–102; PULSE 62–82; RESP 16; TEMP 35.9–36.7; O2SAT 96–100; BMI 37.3
[2021-09-23 11:37] LABS: Internal QC Validated? YES +Cl - CLEAR BKGD; Pregnancy, Urine Negative Negative
--- NOTE | 2021-09-23 11:40 | PCM.HP.BLA ---
History and Physical Date of Admission: 09/23/21 Surgical History and Physical Date: 09/23/2021 Name: CAROLINA REN Age: 36 Date of : 1985 Carolina Ren, a 36 year old female 3 0 0 0 3, presents for Hysteroscopy dilation and curettage, Cristin endometrial ablation -- Patient arrives for hysteroscopy dilation and curettage, endometrial ablation. MEDICATIONS HISTORY: Patient is also takin. ferrous sulfate 325 mg (65 mg iron) tablet, One pill by mouth three times a day 2. levothyroxine 75 mcg tablet, One pill by mouth once a day ALLERGIES: NKA Infections - Chicken pox Illnesses - none Accidents - None Hospitalizations - None Tried Ecstacy x1 with preg; Review of Systems: GENERAL - Denies fever, or chills SKIN - Denies skin changes EYES - Denies visual changes EARS - Denies difficulty hearing NOSE - Denies nasal congestion or bleeding MOUTH - Denies sore throat or difficulty swallowing NECK - Denies pain or swelling RESPIRATORY - Denies shortness of breath or wheezing CARDIOVASCULAR - Denies palpitations or chest pain GASTROINTESTINAL - Denies nausea, vomiting, diarrhea, constipation GENITOURINARY - Denies dysuria, frequency of urination, incontinence of urine MUSCULOSKELETAL - Denies joint or muscle pain NEUROLOGICAL - Denies localized numbness or weakness PSYCHIATRIC - Denies depression or anxiety ENDOCRINE - Denies heat or cold intolerance, weight loss or gain HEMATO-IMMUNOLOGIC - Denies excessive bleeding with cuts SOCIAL HISTORY: Alcohol Use - drinks occasionally Smoking - denies smoking Diet - no special diet Lifestyle - moderate stress lifestyle Exercise - active work Seat Belt Use - occasional Employer - [employer] 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 Father: DM II. Maternal Grandfather: DM II. MENSTRUAL HISTORY: LMP Known?- ApproximateAmount/Duration - 5 days, Regularity - bleeds between periods, Frequency - 28 days, Prior Menses - 02/16/2009, LMP - 08/22/21, Age Onset Menarche - 12 PAST PREGNANCIES: Total Pregnancies - 3; Full Term Pregnancies - 3; Premature - 0; Abortions, Induced - 0; Abortions, Spontaneous - 0; Ectopics - 0; Multiple Births - 0; Living Children - 3 SURGICAL HISTORY: 1. P C/S 02/02/06 ; - 2. 08/22/2008 GALLBLADDER ; unknown - 3. 04/25/2012 ; Armond Pineda M.D. - 4. 07/19/2012 LEEP ; Armond Pineda M.D. - 5. 02/14/2018 and Tubal ; Armond Pineda M.D. - PHYSICAL EXAM BP- 128/78 Sitting, Left arm, large cuff Weight- 237.82975 lbs Height- 66 inch BMI:[id number] CONSTITUTIONAL - NAD, well nourished, and well developed SKIN - No rash, lesions, or ulcers HEENT - Normocephalic, PERRLA, EOMI NECK - No nodes, no nuchal rigidity and thyroid normal size and texture LYMPH NODES - Palpation of lymph nodes in neck and groins within normal limits ABDOMEN - Without hepatosplenomegaly, distention, masses, rebound, or guarding; normal bowel sounds; no hernias EXTREMITIES - No edema or calf tenderness NEUROLOGICAL - Cranial nerves II-XII grossly intact PSYCHIATRIC - A and O to time, place, person, mood and affect External Genital Vagina - non-tender without lesions Urethra/Urethral Meatus - non-tender Bladder - non-tender Vagina - vaginal [place] are pink and moist without loss of rugae and no evidence of atropy Cervix - without cervical motion tenderness and has normal size and features without evident lesions Uterus - 5-6 cm in size, mobile and nontender Adnexa - clear without masses or tenderness ASSESSMENT/PLAN: 1. Abnormal Uterine And Vaginal Bleeding, Unspecified Patient arrives with a longstanding history of irregular periods. After her delivery in 2018 had regular periods now again with irregular periods. Pt for Hysteroscopy D Ablation Follow-up 2 weeks postoperatively 3. Encounter For Other Preprocedural Examination Patient for hysteroscopy, dilation and curettage, endometrial ablation for abnormal uterine bleeding Risk benefits alternatives discussed. All questions were answered and consent was signed. Educated patient on postoperative recovery including pain recovery and return to work. Discussed intercourse and tub baths/pools Follow-up 2 weeks postoperatively
[2021-09-23] MEDS: Lactated Ringers 1,000 ML 120 ML IV (11:49)
--- NOTE | 2021-09-23 12:40 | PCM.DC ---
Discharge Instructions Diet Discharge Diet: No restrictions Activity Discharge Activity: Return to Normal Activity, May Drive and May Shower May resume sexual activity in: 4-6 weeks Weight Bearing Status: Weight bearing as tolerated Dressing / Incision Call your doctor if your incision/area has: Continuous Slow Oozing and Foul Smelling Discharge Call your doctor if you observe: Fever of 101 or Higher, Shortness of breath and Chest pain Follow Up Care Please Follow Up With: Win Villa MD When: 2 weeks postoperatively Test Results: Test results from this visit will be discussed in further detail at your follow-up appointment, if applicable. Discharge Plan Admission Attending Provider: Win Villa Primary Care Provider: Janes Roper NP Discharge Orders/Prescriptions Prescriptions: No Action ferrous sulfate 325 mg (65 mg iron) tablet 325 mg PO DAILY RF: 0 terbinafine HCl 250 mg Tablet 250 mg PO DAILY RF: 0 levothyroxine 75 mcg Capsule 75 mcg PO DAILY RF: 0 Disposition Discharge Orders: Discharge Patient (Routine); Ordered 09/23/21 Ordered By: Dr. Win Villa
--- NOTE | 2021-09-23 12:41 | PCM.OPRPT ---
Report of Operation Date of Procedure: 09/23/21 Pre-Operative Diagnosis: Abnormal uterine bleeding Post-Operative Diagnosis: Abnormal uterine bleeding Surgery/Procedure Performed:: Hysteroscopy, dilation and curettage, endometrial ablation via Cristin Description of Surgical Findings:: Surgeon: Win Villa MD Anesthesia: MAC EBL: 10 cc Urine output: Not measured IV fluids: 400 cc Complications: None Specimen: Endometrial curettings Findings: Preablation hysteroscopy with no pathology noted. No pathology noted on post procedure hysteroscopy. Cristin endometrial device cavity length 6 cm Consent: Patient with abnormal uterine bleeding in need of hysteroscopy, dilation curettage, endometrial ablation via Cristin. Patient understands risk of the procedure include but are not limited to visceral or vascular injury, prolonged hospitalization, blood loss and need for transfusion, reoperation. Patient state understanding wish to proceed. All questions were answered and consent was signed. Procedure: Patient was brought back to the OR where MAC anesthesia was found to be adequate. Patient was prepared and draped in dorsolithotomy position with yellowfin stirrups. A weighted speculum was placed in the posterior aspect of vagina and cervical dilators were used to dilate the cervix. Hysteroscope was inserted and above findings were noted. Sharp endometrial curettage performed and sent to pathology. Cristin ablation device inserted under direct visualization cavity length measured to be 6 cm. All Cristin safety test passed. Endometrial ablation 120 seconds performed. Post procedure hysteroscopy was performed and above findings were noted. Good hemostasis was noted. All counts were correct x2. Patient tolerated the procedure well and was brought to recovery in stable condition.
--- NOTE | 2021-09-23 13:00 | EMB_PTH ---
PATIENT: CAROLINA REN LOC: [facility] – [place] U#:[id number] AGE/SX: 36/F ROOM: RE09/23/[address]: Dr. Win Villa MD : 1985 BED: DIS: 09/23/2021 SPEC #: [id number] RECD: 09/23/21 13:06 STATUS: MARTHA PULLIAMAntwon #: [id number] MELBA: 09/23/21 13:[address]: Win Villa DEPT: SURGICAL PATHOLOGY RECD BY: Vivi Guzman ENTERED: 09/23/21 13:48 SP TYPE: ENDOM BX/C JOHN DR: Janes Roper, TERESA Tissues: Endometrium, NOS Procedures: Surgery Specimen Level IV HEADER OPERATION: Hysteroscopy, D & C, Cristin, endoablation PRE-OP DIAGNOSIS: Abnormal uterine bleeding TISSUE SUBMITTED: Endometrial curettings MICROSCOPIC DIAGNOSIS Endometrium, curettings: Proliferative endometrium with stromal and focal glandular breakdown. Rare strips of benign superficial endocervix. AM:vianey 09/24/2021 MICROSCOPIC DESCRIPTION Slides are reviewed. GROSS DESCRIPTION Received in fixative is one container labeled with the patient's name and designated endometrial curettings. The specimen consists of multiple irregular and hemorrhagic fragments of dudley tissue that in aggregate measure 2.2 x 2 x 0.2 cm. The specimen is totally submitted in one cassette. / AM:vianey 09/23/2021 TC:5 CPT: 97352
== END 2021-09-23 13:54 | disposition home or self-care (01) ==
LOC: SDC 11:06 → AC 11:07
PROVIDERS: Anesthesiology; PCP Nurse Practitioner Primary Care; Referring Provider Obstetrics & Gynecology; Visit Provider Obstetrics & Gynecology
PROC: 0U5B8ZZ Destruction of Endometrium, Via Natural or Artificial Opening Endoscopic (ICD-10-PCS; CPT 58558; principal; 2021-09-23 12:55)
DX: N93.9 Abnormal uterine and vaginal bleeding, unspecified (principal); D64.9 Anemia, unspecified; E07.9 Disorder of thyroid, unspecified; Z79.899 Other long term (current) drug therapy
CPT/HCPCS: 58563; 00952; 36415; 81025; 83735; 84443; 85027; 85610; 85730; 86850; 86900; 86901; 88305; J7120; J2405

== ENCOUNTER → 2021-12-10 | Outpatient (CLI) | payer MEDICAID, SELFPAY | END | disposition home or self-care (01) | PROVIDERS: PCP Nurse Practitioner Primary Care; Visit Provider Obstetrics & Gynecology | DX: N76.0 Acute vaginitis (principal) ==

== ENCOUNTER → 2021-12-30 | Outpatient (CLI) | payer MEDICAID, SELFPAY | END | disposition home or self-care (01) | LOC: LABSPEC 10:30 | PROVIDERS: PCP Nurse Practitioner Primary Care; Visit Provider Obstetrics & Gynecology | DX: N30.00 Acute cystitis without hematuria (principal) | CPT/HCPCS: 87077; 87086; 87088; 87186 ==

== ENCOUNTER → 2022-02-23 | Outpatient (CLI) | payer MEDICAID, SELFPAY | END | disposition home or self-care (01) | PROVIDERS: PCP Nurse Practitioner Primary Care; Visit Provider Obstetrics & Gynecology | DX: Z11.3 Encounter for screening for infections with a predominantly sexual mode of transmission (principal); N76.0 Acute vaginitis ==

== ENCOUNTER → 2022-04-22 | Outpatient (CLI) | payer MEDICAID, SELFPAY ==
[2022-04-22 16:44] LABS: Hematocrit 31.7 % (37-47); Hemoglobin 9.6 g/dL (12.0-15.0); Mean Corp Hgb Conc 30.3 g/dL (32-36); Mean Corpuscular Hgb 24.8 pg (27.0-32.0); Mean Corpuscular Volume 81.9 fL (81-99); Mean Platelet Vol. 9.8 fl (6.2-12.0); Platelet Count 226 K/mm3 (150-450); RBC Distribution Width CV 15.9 % (11.6-14.6); RBC Distribution Width SD 47.7 fl (35.1-43.9); Red Blood Count 3.87 M/mm3 (4.2-5.4); White Blood Count 4.6 K/mm3 (4.4-11.0)
[2022-04-22 17:26] LABS: Estradiol 361.3 pg/mL; Ferritin 6 ng/mL (8-252); Follicle Stimulating Hormone 2.8 mIU/mL; T4 Free Direct 0.98 ng/dL (0.76-1.46); Thyroid Stim Hormone (TSH) 3.52 uIU/mL (0.358-3.74)
== END | disposition home or self-care (01) ==
LOC: WOBLAB 16:31
PROVIDERS: PCP Nurse Practitioner Primary Care; Visit Provider Obstetrics & Gynecology
DX: N93.9 Abnormal uterine and vaginal bleeding, unspecified (principal)
CPT/HCPCS: 36415; 82670; 82728; 83001; 83002; 84439; 84443; 85027

== ENCOUNTER 2022-08-15 08:44 | Day surgery (SDC) | payer MEDICAID, SELFPAY ==
[2022-08-04 15:27] LABS: Hematocrit 34.8 % (37-47); Hemoglobin 10.5 g/dL (12.0-15.0); Mean Corp Hgb Conc 30.2 g/dL (32-36); Mean Corpuscular Hgb 26.5 pg (27.0-32.0); Mean Corpuscular Volume 87.9 fL (81-99); Mean Platelet Vol. 9.7 fl (6.2-12.0); Platelet Count 331 K/mm3 (150-450); RBC Distribution Width CV 13.9 % (11.6-14.6); RBC Distribution Width SD 44.6 fl (35.1-43.9); Red Blood Count 3.96 M/mm3 (4.2-5.4); White Blood Count 7.4 K/mm3 (4.4-11.0)
[2022-08-04 16:08] LABS: Partial Thromboplast Time 28.2 Seconds (24.1-36.2); Prothrombin Time (Protime)PT. 12.9 SECONDS (11.7-14.9)
[2022-08-04 16:28] LABS: Thyroid Stim Hormone (TSH) 6.55 uIU/mL (0.358-3.74)
[2022-08-15] VITALS (12 sets, daily range): BP systolic 121–139; BP diastolic 69–82; PULSE 78–102; RESP 14–16; TEMP 36.1–37.4; O2SAT 92–100; BMI 36.2
--- NOTE | 2022-08-15 | HYST_PTH ---
PATIENT: CAROLINA REN LOC: [facility] [place] U#:[id number] AGE/SX: 36/F ROOM: RE08/15/[address]: Dr. Win Villa MD : 1985 BED: DIS: 08/15/2022 SPEC #: [id number] RECD: 08/15/22 13:35 STATUS: MARTHA REAntwon #: [id number] MELBA: 08/15/22 00:[address]: Win Villa DEPT: SURGICAL PATHOLOGY RECD BY: Stan Marcano ENTERED: 08/16/22 09:27 SP TYPE: HYSTERECT OTHR DR: Janes Roper, NOCTURNIST-C Tissues: Uterus, NOS Procedures: Surgery Specimen Level V HEADER OPERATION: ERAS, lap robotic hysterectomy, bilateral salpingectomy, cysto PRE-OP DIAGNOSIS: Uterine bleeding and leiomyomas TISSUE SUBMITTED: Uterus and fallopian tubes MICROSCOPIC DIAGNOSIS Uterus, hysterectomy: Cervix ? minimal chronic inflammation. Endometrium ? transition endometrium. Myometrium ? extensive adenomyosis. Right and left fallopian tubes ? benign paratubal cysts. AM:vianey 08/17/2022 MICROSCOPIC DESCRIPTION Slides are reviewed. GROSS DESCRIPTION Received in fixative is one container labeled with the patient's name and designated uterus. The specimen consists of a uterus and two detached fallopian tubes. The uterus with cervix measures 13.0 x 9.0 x 6.3 cm and weighs 184.2 gm. The ectocervix is unremarkable. The endocervical canal measures 4.5 cm in length and is grossly unremarkable. A Filshie clip is present attached and intact. The triangular endometrial cavity measures 4.5 x 4.0 cm. The velvety, dudley endometrium measures up to 0.4 cm in thickness. The myometrium measures 2.5 cm in average thickness. No distinct mass lesions are identified. One fallopian tube contains a Filshie-type clip that is intact. The other fallopian tube contains a?smooth, glistening cyst adjacent to the fimbrial end measuring 0.5 cm in greatest dimension. [employer] sections are submitted in eight cassettes as follows: 1 - anterior and posterior cervix, 24?- anterior endometrium/myometrium, 5 & 6 - posterior endometrium and adjacent myometrium 7??fallopian tube with paratubal cyst, 8 - fallopian tube with Filshie clip. / AM:vianey 08/16/2022 TC:5 CPT: 74322
[2022-08-15] MEDS: Magnesium 1 GM over 15 mins IV (09:20)
[2022-08-15 09:21] LABS: Internal QC Validated? YES +Cl - CLEAR BKGD; Pregnancy, Urine Negative Negative
[2022-08-15] MEDS: Acetaminophen 500 MG Tablet 1000 MG PO ×2 (09:23→16:04)
[2022-08-15] MEDS: Gabapentin 600 MG Tablet PO (09:23)
[2022-08-15] MEDS: Lactated Ringers 1,000 ML 40 ML IV (09:24)
--- NOTE | 2022-08-15 10:01 | PCM.HP.BLA ---
History and Physical Date of Admission: 08/15/22 Chief complaint: Abnormal uterine bleeding History present illness: 36-year-old arrives for robotic assisted total laparoscopic hysterectomy bilateral salpingectomy and cystoscopy for abnormal uterine bleeding and leiomyomas. No medical changes since last seen. All questions answered and consent signed. 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 Past medical history: Hypothyroid Medications: Levothyroxine Past surgical history: section x3, tubal ligation, abdominoplasty, hysteroscopy, dilation curettage, endometrial ablation, arm fat reduction Allergies: No known drug allergies Social history: Denies smoking, alcohol use, drug use Family history: Denies history DVT or PE Review of systems: Besides above pertinent positives a full review of systems was performed and found to be negative Physical exam: Vitals: Blood pressure 123/79 pulse 82 respiratory rate 16 temperature 97.4 ?F SPO2 100% on room air General: Normal-appearing no acute distress HEENT: Normocephalic/atraumatic no cervical lymphadenopathy Cardiac/respiratory: No successor muscles, nonlabored breathing Abdomen: Soft, nontender, nondistended Extremities: No peripheral edema normal peripheral pulses Psych: Normal affect normal demeanor nonpressured speech Labs: Urine test negative Assessment and plan: 36-year-old arrives for robotic assisted total laparoscopic hysterectomy bilateral salpingectomy and cystoscopy for abnormal uterine bleeding and leiomyomas. Patient understands risk of the procedure include but are not limited to visceral or vascular injury, prolonged hospitalization, blood loss need for transfusion, reoperation. Patient understands increase intraoperative complications with history of 3 sections and multiple abdominal surgeries. Patient states understanding and wished to proceed. All questions were answered and consent was signed
[2022-08-15 10:11] LABS: Bedside Glucose 88 mg/dL (74-106)
[2022-08-15] MEDS: Cefazolin 2 GM in 0.9% Normal Saline 100 ML IV (10:42)
--- NOTE | 2022-08-15 12:58 | PCM.DC ---
Discharge Instructions Diet Discharge Diet: No restrictions Activity Discharge Activity: Return to Normal Activity, May Drive, May Shower and - (No tub baths for 2 weeks) May resume sexual activity in: 6-8 weeks Lifting Restrictions: No lifting over 25 pounds for 2 to 3 weeks Dressing / Incision Call your doctor if your incision/area has: Continuous Slow Oozing and Foul Smelling Discharge Call your doctor if you observe: Fever of 101 or Higher, Shortness of breath and Chest pain Follow Up Care Please Follow Up With: Win Villa MD When: 2 weeks postoperatively Test Results: Test results from this visit will be discussed in further detail at your follow-up appointment, if applicable. Discharge Plan Admission Attending Provider: Win Villa Primary Care Provider: Janes Roper NP Discharge Orders/Prescriptions Prescriptions: New oxycodone 5 mg Tablet 5 mg PO Q6H PRN PRN (Reason: Pain Score 7-10/10) 5 Days Qty: 24 0RF Continued ferrous sulfate 325 mg (65 mg iron) tablet 325 mg PO DAILY levothyroxine 75 mcg Capsule 75 mcg PO DAILY Referrals / Follow Up: Janes Roper NP, TIN RECOVERY WORKER-C [Primary Care Provider] - Disposition Disposition (needs filled in before D/C Order can be placed): Home, Self Care
--- NOTE | 2022-08-15 12:59 | OP.PCM_ITS ---
Report of Operation Date of Procedure: 08/15/22 Pre-Operative Diagnosis: Abnormal uterine bleeding, leiomyoma Post-Operative Diagnosis: Abnormal uterine bleeding, leiomyoma Surgery/Procedure Performed:: Robotic assisted total laparoscopic hysterectomy and bilateral salpingectomy, right ovarian cyst drainage, cystoscopy Description of Surgical Findings:: Surgeon: Win Villa MD Anesthesia: General EBL: 25 cc Urine output: 150 cc IV fluids: 900 cc Complications: None Specimen: Cervix, uterus, bilateral fallopian tubes Findings: Enlarged fibroid uterus bilateral Filshie clips noted. Right ovarian simple cyst 2 cm in size drained for clear fluid. Otherwise normal uterus, tubes, and ovaries. Maryam placed over colpotomy. Post procedure cystoscopy with bilateral ureteral jets noted and no pathology noted. Consent: Patient with abnormal uterine bleeding and leiomyomas elects for robotic assisted total laparoscopic hysterectomy about a salpingectomy and cystoscopy. Patient understands risk of the procedure include but are not limited to visceral or vascular injury, prolonged hospitalization, blood loss need for transfusion, reoperation. Patient state understanding wish to proceed. All questions were answered and consent was signed. Procedure: Patient was brought back to the OR where general anesthesia was found to be adequate. 2 g of Ancef were given for infection prophylaxis patient was prepared and draped in a dorsolithotomy position with yellowfin stirrups. A weighted speculum is placed in the posterior aspect of the vagina and cervical dilators were used to dilate the cervix. Uterine manipulator was placed. Varies needle was inserted at the umbilicus and water safety test was passed, abdomen was insufflated. 8 mm robotic trocar was inserted supraumbilical midline under direct visualization. Laparoscope was inserted and above findings were noted. Bilateral lower quadrant 8 mm trocars were inserted under direct visualization. Left upper quadrant 8 mm air seal trocar was inserted under direct visualization. Robot was docked. Organ targeting was performed. Bilateral ureters were visualized and noted to be out of the operative field. Using a vessel sealer and monopolar scissors the left round ligament was identified cut and cauterized, anterior and posterior portions of broad ligament were dissected, bladder flap was developed. Left fallopian tube was identified to the fimbria and the mesosalpinx was cut and cauterized, fallopian tube was transected at the cornua and fallopian tube and Filshie clip were removed from the abdominal cavity and sent to pathology. Left utero-ovarian ligament was noted cut and cauterized. Left uterine vessels were skeletonized, cut and cauterized, lateralized beyond the level of colpotomy cup. Right round ligament was identified cut and cauterized, anterior and posterior portions of broad ligament were dissected. Bladder flap was fully developed beyond the level of colpotomy cup. Right fallopian tube was identified to the fimbria and the me sosalpinx was cut and cauterized, fallopian tube was transected at the cornua and right fallopian tube was removed from the abdominal cavity and sent to pathology. Right Filshie clip was attached to cornua and was removed with uterus and cervix. Right ovary with 2 cm simple cyst as noted above, puncture and cyst made and drained for clear fluid. Right utero-ovarian ligament was identified cut and cauterized. Right uterine vessels were skeletonized. Right uterine vessels were cut and cauterized, lateralized beyond the level of colpotomy cup. Circumferential colpotomy was made using monopolar scissors. Cervix, uterus, right Filshie clip were removed from the abdominal cavity and sent to pathology. Good hemostasis was noted. Colpotomy was closed with V-Loc suture in a continuous running fashion. Irrigation was performed and good hemostasis was noted. Insufflation pressure was decreased and good hemostasis was noted. Post procedure cystoscopy was performed and above findings were noted, bilateral ureteral jets and no pathology noted. Abdomen was desufflated and trocars were removed under direct visualization, good hemostasis was noted. Trocar sites were closed in a subcutaneous fashion with skin glue placed over the incisions. Good hemostasis was noted. All counts were correct x2. Patient tolerated the procedure well and was brought to recovery in a stable condition. numerical control drill press operator: Rebecca Cornejo
[2022-08-15] MEDS: oxyCODONE 5 MG Tablet PO (16:05)
== END 2022-08-15 16:45 | disposition home or self-care (01) ==
LOC: SDC 08:45 → AC 08:46
PROVIDERS: Anesthesiology; PCP Nurse Practitioner Primary Care; Referring Provider Obstetrics & Gynecology; Visit Provider Obstetrics & Gynecology
PROC: 0UT90ZZ Resection of Uterus, Open Approach (ICD-10-PCS; CPT 58571; principal; 2022-08-15 10:45)
DX: N80.03 Adenomyosis of the uterus (principal); N83.8 Other noninflammatory disorders of ovary, fallopian tube and broad ligament; E07.9 Disorder of thyroid, unspecified; D64.9 Anemia, unspecified; Z79.899 Other long term (current) drug therapy
CPT/HCPCS: 58571; S2900; 00840; 36415; 81025; 82962; 83735; 84443; 85027; 85610; 85730; 86850; 86900; 86901; 88307; J7120; J2405; J3475

== ENCOUNTER 2023-01-16 14:15 | Emergency (ER) | payer MEDICAID, SELFPAY ==
[2023-01-16 14:16] VITALS: BP 133/77; PULSE 71; RESP 18; TEMP 35.9; O2SAT 100; BMI 38.2
--- NOTE | 2023-01-16 14:37 | ED.RN ---
pt states i think i will just come back when i have more time to sit and wait. LWBS
== END 2023-01-16 14:35 | disposition left against medical advice (07) ==
LOC: ED 14:39
PROVIDERS: PCP Nurse Practitioner Primary Care
DX: Z53.21 Procedure and treatment not carried out due to patient leaving prior to being seen by health care provider (principal)

== ENCOUNTER 2023-01-16 21:07 | Emergency (ER) | payer MEDICAID, SELFPAY ==
[2023-01-16 21:07] VITALS: BP 161/95; PULSE 71; RESP 15; TEMP 36.4; O2SAT 100; BMI 36.0
[2023-01-16 22:25] VITALS: O2SAT 98
--- NOTE | 2023-01-16 22:41 | EX.ED.DYSGE1 ---
HPI History of Present Illness Chief Complaint: Shortness of Breath Informant: patient Narrative Narrative: Patient is a 37-year-old female with past medical history of hypothyroidism. She states that she has had mild congestion cough and shortness of breath for the past few days. He denies any known sick contacts and states that she does not smoke vape or have history of lung disorders such as asthma or COPD. She states she feels like her lungs are inflamed and is difficult to get a complete breath. She states she went to an urgent care where chest x-ray was obtained which revealed no lung pathology and a COVID test was obtained which was negative. She reports she was not given any treatment however and secondary to this comes to the hospital for evaluation [facility] Medical History (Updated 01/17/23 @ 03:[address] Natanael Servin DO) Anemia Non-smoker Thyroid disease Home Medications ferrous sulfate 325 mg (65 mg iron) tablet 325 mg PO DAILY 06/04/21 [History Last Taken 09/22/21] levothyroxine 75 mcg capsule 100 mcg PO DAILY 09/16/21 [History Last Taken Unknown] oxycodone 5 mg tablet 5 mg PO Q6H PRN PRN Pain Score 7-10/10 5 days #24 tabs 08/15/22 [Rx Last Taken Unknown] albuterol sulfate 90 mcg/actuation aerosol inhaler (Ventolin HFA) 2 puff inhalation Q4H PRN PRN SOB/Wheezing #1 device 01/16/23 [Rx Last Taken Unknown] azelastine 137 mcg (0.1 %) nasal spray aerosol 2 spray intranasal BID #30 mL 01/16/23 [Rx Last Taken Unknown] prednisone 20 mg tablet 40 mg (2 x 20 mg) PO DAILY 7 days #14 tabs 01/16/23 [Rx Last Taken Unknown] Allergy/AdvReac Type Severity Reaction Status Date / Time No Known Allergies Allergy Verified 01/16/23 22:24 Surgical History History of abdominoplasty History of cholecystectomy History of hysteroscopy History of tonsillectomy Social History Smoking Status: Never smoker ROS ROS ED Constitutional Constitutional ED: Denies chills or fever(s) ENT ENT ED: Reports rhinorrhea Cardiovascular Cardiovascular: Denies chest pain Respiratory/Chest Respiratory/Chest: Reports cough and dyspnea Gastrointestinal Gastrointestinal: Denies abdominal pain, diarrhea, nausea or vomiting Genitourinary Genitourinary ED: Denies dysuria Musculoskeletal Musculoskeletal: Denies myalgias Integumentary Denies rash Neurologic Neurologic: Denies headache(s) Hematologic/Lymphatic Hematologic/Lymphatic: Denies easy bleeding or easy bruising EXAM Physical Exam Const Vital Signs: 01/16/23 21:07 01/16/23 22:25 01/16/23 22:51 Temperature 97.5 F L Temperature Source Temporal Pulse Rate 71 73 Respiratory Rate 15 18 Respiratory Effort Short of Breath Labored Respiratory Depth Shallow Respiratory Pattern Normal Blood Pressure 161/95 H 140/104 H Blood Pressure Mean 117 Pulse Ox 100 99 Oxygen Delivery Method Room Air Room Air 01/16/23 23:09 Temperature Temperature Source Pulse Rate Respiratory Rate 18 Respiratory Effort Respiratory Depth Respiratory Pattern Blood Pressure Blood Pressure Mean Pulse Ox Oxygen Delivery Method Room Air Positive well nourished and well developed General Appearance ED: well developed; Negative for pallor HEENT Reports moist mucous membranes HEENT Narrative: Nasal mucosa is hyperemic and boggy with enlarged inferior nasal turbinate There is cobblestoning the posterior pharynx consistent with sinus drainage but no airway edema or compromise or secondary changes to suggest infection Eyes PERRL and EOMs intact bilaterally Neck supple and no JVD Chest Wall palpation of chest normal Resp normal respiratory effort Resp Narrative: Sounds are diminished throughout with faint expiratory wheeze in the bilateral bases but otherwise no nasal flaring retractions tachypnea or accessory muscle use Cardio regular rate and regular rhythm Extremity normal to inspection Extremity Narrative: No asymmetric edema no pitting edema negative Homans' sign bilaterally Neuro oriented x3, CN's II-XII intact bilaterally and no sensory deficits noted Sensorium / Orientation: alert Motor Exam: strength 5/5 throughout Psych mental status grossly normal Skin no rashes or lesions noted General Skin Exam: Negative for pallor MDM MDM MDM Narrative Medical decision making narrative: Patient presented to the ER hypertensive but otherwise afebrile satting 98 to 100% on room air. She already had a chest x-ray and COVID swab obtained so there is no need to repeat this. Initial diagnosis is for viral upper respiratory tract infection versus pneumonia versus pneumothorax versus pneumomediastinum. As patient is already had a chest x-ray do not feel the need to repeat this especially as she has equal breath sounds throughout without signs of acute respiratory distress or hypoxia. Also as patient is already had viral swab obtained there is no need for repeat sample. Patient will be placed on albuterol inhaler to help with bronchospasm as well as steroid to reduce inflammation and congestion. As she does not have signs of respiratory distress or need for supplemental oxygen there is no need for further work-up and she is otherwise safe for discharge History & Record Review Discussion w/independent historian: Patient Discharge Plan Triage Chief Complaint: Shortness of Breath ED Provider: Natanael Servin Dx/Rx/DC Orders Clinical Impression: Viral upper respiratory tract infection with cough, History of hypothyroidism Instructions: ED URI, Viral W/ Wheezing (Adult) Prescriptions: New prednisone 20 mg tablet 40 mg PO DAILY 7 Days Qty: 14 0RF albuterol sulfate [Ventolin HFA] 90 mcg/actuation HFA aerosol inhaler 2 puff inhalation Q4H PRN PRN (Reason: SOB/Wheezing) Qty: 1 0RF azelastine 137 mcg (0.1 %) aerosol,spray 2 spray intranasal BID Qty: 30 0RF Rx Instructions: administer into each nostril No Action ferrous sulfate 325 mg (65 mg iron) tablet 325 mg PO DAILY levothyroxine 75 mcg Capsule 100 mcg PO DAILY oxycodone 5 mg Tablet 5 mg PO Q6H PRN PRN (Reason: Pain Score 7-10/10) 5 Days Qty: 24 0RF Hold Instructions: Pt has been DC'd Primary Care Provider: Janes Roper NP Referrals: Janes Roper NP, PRINCIPAL CLOUD ARCHITECT-C [Primary Care Provider] - Activity Restrictions/Additional Instructions: Your history and exam indicate you have a viral upper respiratory infection which will last on average 18 to 21 days. The first 7 days are typically the most severe. Use the prescribed medications as directed to help control symptoms and return to the ER should you have any further concerns Disposition Disposition: Home, Self Care Discharge Date/Time: 01/16/23 23:13
[2023-01-16] MEDS: predniSONE 20 MG Tablet 60 MG PO (22:46)
[2023-01-16 22:51] VITALS: BP 140/104; PULSE 73; RESP 18; O2SAT 99
[2023-01-16] MEDS: Albuterol Sulfate 8 gm Inhaler (60 puffs) 2 PUFF INHALATION (23:04)
[2023-01-16 23:09] VITALS: RESP 18
== END 2023-01-16 23:13 | disposition home or self-care (01) ==
LOC: ED 22:52
PROVIDERS: Emergency Provider Emergency Medicine; PCP Nurse Practitioner Primary Care; Visit Provider Emergency Medicine
DX: J06.9 Acute upper respiratory infection, unspecified (principal); R05.9 Cough, unspecified; E03.9 Hypothyroidism, unspecified; Z79.899 Other long term (current) drug therapy
CPT/HCPCS: 94640; 99283